=== PATIENT | male | born 1960 | race Caucasian/White ===

== ENCOUNTER → 2017-12-20 08:54 | Outpatient (CLI) | payer OTHER, SELFPAY ==
[2017-12-20 12:59] LABS: AST(SGOT) 17 U/L (15-37); Alanine Aminotransfer ALT/SGPT 29 U/L (16-61); Albumin, Serum 3.6 g/dL (3.2-5.0); Alkaline Phosphatase 52 U/L (45-117); Anion Gap 8 (5-15); BUN 17 mg/dL (7-18); Calcium,Total 8.4 mg/dL (8.5-10.1); Chloride 106 mmol/L (98-107); Cholesterol 154 mg/dL (200); Creatinine, Serum 0.94 mg/dL (0.70-1.30); EST Glomerular Filtration Rate 88 mL/min (>60); Est Glom Filt Rate - Afr Amer 106 mL/min (>60); Globulin 3.6 g/dL (2.2-4.2); Glucose 97 mg/dL (74-106); High Density Lipoprotein 39 mg/dL; Potassium 4.1 mmol/L (3.5-5.1); Protein, Total 7.2 g/dL (6.4-8.2); Sodium Level 139 mmol/L (136-145); Triglycerides 94 mg/dL; Very Low Density Lipoprotein 19 mg/dL (5-40)
[2017-12-20 13:03] LABS: Absolute Lymphocyte Count 1.63 X10^3/ul (0.83-4.51); Absolute Neutrophil Count 3.1 X10^3/uL (2.0-7.7); Basophil# 0.03 X10^3/uL; Basophil% 0.5 % (0-1); Eosinophil# 0.21 X10^3/uL; Eosinophils% 3.8 % (0-5); Hematocrit 43.3 % (40-54); Hemoglobin 14.9 g/dl (13.0-16.5); Lymphocyte # 1.63 X10^3/ul (4.0); Lymphocyte % 29.9 % (19-41); Mean Corp Hgb Conc 34.4 g/gl (32-36); Mean Corpuscular Hgb 28.4 pg (27.0-32.0); Mean Corpuscular Volume 82.5 fL (80-94); Mean Platelet Vol. 8.8 fl (6.2-12.0); Monocyte# 0.43 X10^3/uL; Monocyte% 7.9 % (0-10); Neutrophil % 56.8 % (47-70); Platelet Count 212 K/mm3 (150-450); RBC Distribution Width CV 13.3 % (11.6-14.6); RBC Distribution Width SD 39.7 fl (35.1-43.9); Red Blood Count 5.25 M/mm3 (4.6-6.2); White Blood Count 5.5 K/mm3 (4.4-11.0)
[2017-12-20 13:04] LABS: POSITIVE COUNT NO; POSITIVE DIFFERENTIAL NO; POSITIVE MORPHOLOGY NO
[2017-12-20 13:12] LABS: Vitamin D,25 Hydroxy 76.7 ng/mL (29.95-100.01)
== END ==
PROVIDERS: Family Provider Family Medicine; PCP Family Medicine; Visit Provider Family Medicine
DX: I10 Essential (primary) hypertension (principal); E78.5 Hyperlipidemia, unspecified; E55.9 Vitamin D deficiency, unspecified; Z12.5 Encounter for screening for malignant neoplasm of prostate
CPT/HCPCS: 36415; 80053; 80061; 82306; 85025

== ENCOUNTER → 2018-06-23 09:56 | Outpatient (CLI) | payer OTHER, SELFPAY ==
[2018-06-23 12:34] LABS: Absolute Lymphocyte Count 1.42 X10^3/ul (0.83-4.51); Absolute Neutrophil Count 3.4 X10^3/uL (2.0-7.7); Basophil# 0.02 X10^3/uL; Basophil% 0.4 % (0-1); Eosinophil# 0.14 X10^3/uL; Eosinophils% 2.6 % (0-5); Hematocrit 41.7 % (40-54); Lymphocyte # 1.42 X10^3/ul (4.0); Lymphocyte % 26.7 % (19-41); Mean Corp Hgb Conc 33.6 g/gl (32-36); Mean Corpuscular Hgb 27.9 pg (27.0-32.0); Mean Corpuscular Volume 83.2 fL (80-94); Monocyte# 0.37 X10^3/uL; Neutrophil # 3.36 X10^3/uL (2.7-7.7); Neutrophil % 63.3 % (47-70); Platelet Count 210 K/mm3 (150-450); RBC Distribution Width CV 13.3 % (11.6-14.6); RBC Distribution Width SD 40.2 fl (35.1-43.9); Red Blood Count 5.01 M/mm3 (4.6-6.2); White Blood Count 5.3 K/mm3 (4.4-11.0)
[2018-06-23 12:52] LABS: POSITIVE COUNT NO; POSITIVE DIFFERENTIAL NO; POSITIVE MORPHOLOGY NO
[2018-06-23 12:55] LABS: ALB/GLOB Ratio 1.2 RATIO (0.9-2.4); AST(SGOT) 17 U/L (15-37); Alanine Aminotransfer ALT/SGPT 29 U/L (16-61); Albumin, Serum 3.8 g/dL (3.2-5.0); Alkaline Phosphatase 50 U/L (45-117); Anion Gap 10 (5-15); BUN 14 mg/dL (7-18); BUN/Creat Ratio 14.3 RATIO (10-20); Calcium,Total 8.7 mg/dL (8.5-10.1); Chloride 106 mmol/L (98-107); Creatinine, Serum 0.98 mg/dL (0.70-1.30); EST Glomerular Filtration Rate 84 mL/min (>60); Est Glom Filt Rate - Afr Amer 102 mL/min (>60); Globulin 3.3 g/dL (2.2-4.2); Glucose 84 mg/dL (74-106); Potassium 4.1 mmol/L (3.5-5.1); Protein, Total 7.1 g/dL (6.4-8.2); Sodium Level 143 mmol/L (136-145); Thyroid Stim Hormone (TSH) 2.49 uIU/mL (0.358-3.74)
== END ==
PROVIDERS: Family Provider Family Medicine; PCP Family Medicine; Visit Provider Family Medicine
DX: I10 Essential (primary) hypertension (principal); R53.83 Other fatigue; Z51.81 Encounter for therapeutic drug level monitoring
CPT/HCPCS: 36415; 80053; 84443; 85025

== ENCOUNTER → 2018-12-19 10:00 | Outpatient (CLI) | payer OTHER, SELFPAY ==
[2018-11-01 11:06] VITALS: BMI 36.6
[2018-12-19 12:35] LABS: Absolute Neutrophil Count 4.1 X10^3/uL (2.0-7.7); Basophil# 0.02 X10^3/uL; Basophil% 0.3 % (0-1); Eosinophil# 0.11 X10^3/uL; Eosinophils% 1.8 % (0-5); Hematocrit 44.5 % (40-54); Hemoglobin 14.4 g/dl (13.0-16.5); Lymphocyte % 24.7 % (19-41); Mean Corp Hgb Conc 32.4 g/gl (32-36); Mean Corpuscular Hgb 27.8 pg (27.0-32.0); Mean Corpuscular Volume 85.9 fL (80-94); Mean Platelet Vol. 8.9 fl (6.2-12.0); Monocyte# 0.37 X10^3/uL; Monocyte% 6.1 % (0-10); Neutrophil # 4.05 X10^3/uL (2.7-7.7); Neutrophil % 66.6 % (47-70); Platelet Count 199 K/mm3 (150-450); RBC Distribution Width CV 13.3 % (11.6-14.6); RBC Distribution Width SD 41.8 fl (35.1-43.9); Red Blood Count 5.18 M/mm3 (4.6-6.2); White Blood Count 6.1 K/mm3 (4.4-11.0)
[2018-12-19 12:42] LABS: POSITIVE COUNT NO; POSITIVE DIFFERENTIAL NO; POSITIVE MORPHOLOGY NO
[2018-12-19 12:53] LABS: Vitamin D,25 Hydroxy 88.5 ng/mL (29.95-100.01)
[2018-12-19 13:15] LABS: ALB/GLOB Ratio 1.2 RATIO (0.9-2.4); AST(SGOT) 18 U/L (15-37); Alanine Aminotransfer ALT/SGPT 29 U/L (16-61); Albumin, Serum 3.9 g/dL (3.2-5.0); Alkaline Phosphatase 49 U/L (45-117); Anion Gap 10 (5-15); BUN 14 mg/dL (7-18); BUN/Creat Ratio 13.2 RATIO (10-20); Calcium,Total 8.7 mg/dL (8.5-10.1); Chloride 107 mmol/L (98-107); Cholesterol 148 mg/dL (200); Creatinine, Serum 1.06 mg/dL (0.70-1.30); EST Glomerular Filtration Rate 76 mL/min (>60); Est Glom Filt Rate - Afr Amer 92 mL/min (>60); Globulin 3.3 g/dL (2.2-4.2); Glucose 90 mg/dL (74-106); High Density Lipoprotein 42 mg/dL; PSA,Total - Annual Screen 0.37 ng/mL (0.00-4.00); Potassium 4.2 mmol/L (3.5-5.1); Protein, Total 7.2 g/dL (6.4-8.2); Sodium Level 141 mmol/L (136-145); Thyroid Stim Hormone (TSH) 2.54 uIU/mL (0.358-3.74); Triglycerides 80 mg/dL; Very Low Density Lipoprotein 16 mg/dL (5-40)
== END ==
PROVIDERS: Family Provider Family Medicine; PCP Family Medicine; Visit Provider Family Medicine
DX: E55.9 Vitamin D deficiency, unspecified (principal); E78.5 Hyperlipidemia, unspecified; I10 Essential (primary) hypertension; R53.83 Other fatigue; Z12.5 Encounter for screening for malignant neoplasm of prostate; Z51.81 Encounter for therapeutic drug level monitoring
CPT/HCPCS: 36415; 80053; 80061; 82306; 84153; 84443; 85025; G0103

== ENCOUNTER → 2019-05-12 | Outpatient (CLI) | payer OTHER, SELFPAY ==
[2019-05-12 08:31] VITALS: BMI 36.6
--- NOTE | 2019-05-12 08:47 | RAD_ITS ---
STUDY: X-RAY - LEFT KNEE REASON FOR EXAM: Chronic pain. TECHNIQUE: 4 view(s) of the knee. COMPARISON: Radiographs 09/21/2016. FINDINGS: Normal visualized distal femur. Normal visualized proximal tibia and fibula. Normal proximal tibiofibular articulation. Normal medial femorotibial compartment. Normal lateral femorotibial compartment. Normal patellofemoral articulation. There is an enthesophyte at the superior pole of the patella. RAD/Knee 4 or More Views IMPRESSION: Patellar enthesophyte. Otherwise, unremarkable x-ray examination of the left knee. Electronically Signed: Oscar Sparks MD at 13:28 EDT Tel , Service support ,
== END | disposition home or self-care (01) ==
LOC: HPRAD 08:46
PROVIDERS: Family Provider Family Medicine; PCP Family Medicine; Referring Provider Orthopaedic Surgery; Visit Provider Orthopaedic Surgery
DX: M25.562 Pain in left knee (principal)
CPT/HCPCS: 73564

== ENCOUNTER → 2019-06-08 | Outpatient (CLI) | payer OTHER, SELFPAY ==
--- NOTE | 2019-06-08 09:10 | LIP_PTH ---
PATIENT: GARRET CHIRINOS LOC: [facility] U#:[id number] AGE/SX: 58/M ROOM: RE06/08/[address]: Dr. Annmarie Espitia MD : 1960 BED: DIS: 06/08/2019 SPEC #: [id number] RECD: 06/08/19 16:07 STATUS: NISA REMariam #: [id number] YVETTE: 06/08/19 09:[address]: Annmarie Espitia DEPT: SURGICAL PATHOLOGY RECD BY: Sharath Leung ENTERED: 06/09/19 14:16 SP TYPE: LIPOMA OT DR: DO Masha Bain Tissues: Soft tissues, NOS Procedures: Surgery Specimen Level III HEADER OPERATION: Excision of truncal lipomas PRE-OP DIAGNOSIS: Lipomas, left lower chest TISSUE SUBMITTED: Truncal lipoma, left lower chest MICROSCOPIC DIAGNOSIS Soft tissue mass of left lower chest wall, biopsy: Mature adipose tissue consistent with angiolipoma. AM:rafat 06/10/19 MICROSCOPIC DESCRIPTION Slides are reviewed. GROSS DESCRIPTION Received in fixative is one container labeled with the patient's name and designated abdominal lipoma. The specimen consists of 4 variable-sized pieces of yellow adipose tissue that measure in aggregate 2.5 x 2.5 x 1.5 cm. Sections reveal yellow adipose cut surfaces without area of hemorrhage, necrosis and cystic degeneration. Electronics Specialist sections are submitted in 1 cassette. /SJ:rafat 06/09/19 TC: 1 CPT: 83442
[2019-06-08 10:08] VITALS: BMI 36.6
== END | disposition home or self-care (01) ==
PROVIDERS: Family Provider Family Medicine; PCP Family Medicine; Referring Provider Surgery; Visit Provider Surgery
DX: D17.1 Benign lipomatous neoplasm of skin and subcutaneous tissue of trunk (principal)
CPT/HCPCS: 88304

== ENCOUNTER → 2019-12-14 | Outpatient (CLI) | payer OTHER, SELFPAY ==
[2019-06-08 10:08] VITALS: BMI 36.6
[2019-12-14 12:56] LABS: Absolute Lymphocyte Count 1.45 X10^3/uL (0.83-4.51); Absolute Neutrophil Count 3.2 X10^3/uL (2.0-7.7); Basophil# 0.02 X10^3/uL; Basophil% 0.4 % (0-1); Eosinophil# 0.13 X10^3/uL; Eosinophils% 2.5 % (0-5); Hematocrit 43.1 % (40-54); Hemoglobin 14.2 g/dL (13.0-16.5); Lymphocyte # 1.45 X10^3/ul (4.0); Lymphocyte % 27.9 % (19-41); Mean Corp Hgb Conc 32.9 g/dL (32-36); Mean Corpuscular Hgb 27.6 pg (27.0-32.0); Mean Corpuscular Volume 83.9 fL (80-94); Mean Platelet Vol. 8.9 fl (6.2-12.0); Monocyte# 0.35 X10^3/uL; Monocyte% 6.7 % (0-10); NRBC Flagged by Analyzer 0 % (0-5); Neutrophil # 3.23 X10^3/uL (2.7-7.7); Neutrophil % 62.1 % (47-70); Platelet Count 170 K/mm3 (150-450); RBC Distribution Width SD 39.5 fl (35.1-43.9); Red Blood Count 5.14 M/mm3 (4.6-6.2); White Blood Count 5.2 K/mm3 (4.4-11.0)
[2019-12-14 13:14] LABS: AST(SGOT) 16 U/L (15-37); Alanine Aminotransfer ALT/SGPT 32 U/L (16-61); Albumin, Serum 3.4 g/dL (3.2-5.0); Alkaline Phosphatase 46 U/L (45-117); Anion Gap 5 (5-15); BUN 15 mg/dL (7-18); BUN/Creat Ratio 14.6 RATIO (10-20); Calcium,Total 8.8 mg/dL (8.5-10.1); Chloride 109 mmol/L (98-107); Cholesterol 141 mg/dL (200); Creatinine, Serum 1.03 mg/dL (0.70-1.30); EST Glomerular Filtration Rate 79 mL/min (>60); Est Glom Filt Rate - Afr Amer 95 mL/min (>60); Globulin 3.4 g/dL (2.2-4.2); Glucose 103 mg/dL (74-106); High Density Lipoprotein 39 mg/dL; Protein, Total 6.8 g/dL (6.4-8.2); Sodium Level 141 mmol/L (136-145); Thyroid Stim Hormone (TSH) 3.36 uIU/mL (0.358-3.74); Triglycerides 89 mg/dL; Very Low Density Lipoprotein 18 mg/dL (5-40)
[2019-12-14 13:18] LABS: Vitamin D,25 Hydroxy 92.1 ng/mL
== END | disposition home or self-care (01) ==
LOC: BFHLAB 08:53
PROVIDERS: PCP Family Medicine; Referring Provider Family Medicine; Visit Provider Family Medicine
DX: E78.5 Hyperlipidemia, unspecified (principal); E55.9 Vitamin D deficiency, unspecified; R53.83 Other fatigue; Z12.5 Encounter for screening for malignant neoplasm of prostate; Z51.81 Encounter for therapeutic drug level monitoring
CPT/HCPCS: 36415; 80053; 80061; 82306; 84443; 85025

== ENCOUNTER → 2019-12-21 | Outpatient (CLI) | payer OTHER, SELFPAY ==
[2019-06-08 10:08] VITALS: BMI 36.6
== END | disposition home or self-care (01) ==
LOC: LAB.FUTURE 13:54 → BFHLAB 13:55
PROVIDERS: PCP Family Medicine; Visit Provider Family Medicine
DX: Z12.5 Encounter for screening for malignant neoplasm of prostate (principal)
CPT/HCPCS: 36415; 84153; G0103

== ENCOUNTER → 2020-06-16 | Outpatient (CLI) | payer OTHER, SELFPAY ==
[2019-06-08 10:08] VITALS: BMI 36.6
[2020-06-16 08:34] VITALS: BMI 36.6
[2020-06-16 13:02] LABS: Free T3 2.5 pg/mL (2.18-3.98); T4 Free Direct 1.03 ng/dL (0.76-1.46); Thyroid Stim Hormone (TSH) 2.79 uIU/mL (0.358-3.74)
[2020-06-17 14:12] LABS: Thyroid Peroxidase AB < 9 IU/mL (0-34)
== END | disposition home or self-care (01) ==
LOC: BFHLAB 09:27
PROVIDERS: PCP Family Medicine; Referring Provider Family Medicine; Visit Provider Family Medicine
DX: E03.9 Hypothyroidism, unspecified (principal)
CPT/HCPCS: 36415; 84439; 84443; 84481; 86376

== ENCOUNTER → 2020-07-06 16:05 | Outpatient (CLI) | payer OTHER, SELFPAY ==
[2020-06-16 08:34] VITALS: BMI 36.6
--- NOTE | 2020-07-06 16:30 | CYST_PTH ---
PATIENT: GARRET CHIRINOS LOC: [facility] U#:[id number] AGE/SX: 65/M ROOM: RE07/06/[address]: Dr. Masha Ortiz DO : 1960 BED: DIS: SPEC #: [id number] RECD: 07/07/20 12:44 STATUS: NISA KARLA #: [id number] YVETTE: 07/06/20 16:[address]: Masha Ortiz DEPT: SURGICAL PATHOLOGY RECD BY: Srinivas Lamb ENTERED: 07/07/20 13:25 SP TYPE: Cyst OTHR DR: Masha Ortiz Tissues: CYST Procedures: Surgery Specimen Level IV HEADER OPERATION: Excision sebaceous cyst left upper lip PRE-OP DIAGNOSIS: Rule out sebaceous cyst TISSUE SUBMITTED: Left upper lip MICROSCOPIC DIAGNOSIS Left upper lip, excisional biopsy: Benign adnexal tumor, most consistent with trichoepithelioma, completely excised. SJ:gabriel 07/08/20 COMMENT Case has been reviewed in consultation with Dr. Jorgensen who concurs with the above diagnosis. IDC:AM MICROSCOPIC DESCRIPTION Slides are reviewed. GROSS DESCRIPTION Received in fixative is one container labeled with the patient's name and designated left upper lip. The specimen consists of a piece of stafford mucosal tissue measuring 1 x 0.6 x 0.3 cm. The specimen is inked, serially sectioned and submitted entirely in one cassette. / SJ:gabriel 07/07/20 TC:1 CPT: 13372
== END ==
PROVIDERS: PCP Family Medicine; Visit Provider Family Medicine
DX: D23.0 Other benign neoplasm of skin of lip (principal)
CPT/HCPCS: 88304; 88305

== ENCOUNTER → 2020-11-29 08:37 | Outpatient (CLI) | payer OTHER, SELFPAY ==
--- NOTE | 2020-11-28 | IMM_PTH ---
PATIENT: GARRET CHIRINOS LOC: [facility] U#:[id number] AGE/SX: 65/M ROOM: RE11/29/[address]: Dr. Masha Ortiz DO : 1960 BED: DIS: SPEC #: [id number] RECD: 11/30/20 13:42 STATUS: SOUDom REQ #: [id number] YVETTE: 11/28/20 00:[address]: Masha Ortiz DEPT: IMMUNOHISTOCHEMISTRY RECD BY: Mikaela Bauer ENTERED: 11/30/20 13:48 SP TYPE: IMMUNO OTHR DR: Masha Ortiz Tissues: B - Skin of back, NOS Procedures: SMA (add) Beto Ret (add) CD34 (add) CK5-6 (add) DESMIN (add) MACRO (add) Vimentin (add) NEUROFIL (add) Pankeratin (initial) MELAN-A (add) P40 (add) S-100 (add) [facility]YS[facility] [address] [address] SPECIMEN INFORMATION: Tissue Source: B - Left mid back Clinical Info: Rule out MM left mid back Specimen Number: [id number] CPT code: 57045, 05484 x11 METHODOLOGY: Deparaffinized sections of prefer/formalin-fixed tissue or PAP/DQ stained slides are incubated with monoclonal/polyclonal antibodies/oligonucleotide probes. Localization is made via biotin free immunoperoxidase method. Appropriate controls are performed and reacted as expected. Results on target cell population are indicated in the following table: RESULTS: ANTIBODY / CLONE RESULT Block B AE1-3 (AE1/AE3/PCK26) negative Vimentin (V9) positive CD34 (QBEnd-10) negative Macro (HAM-56) negative Actin (1A4) negative Desmin (CE-R-11) negative Melan A (A103) negative S-100 (4C4.9) negative Neurofil (2F11) negative CALRET (polyclonal) positive, stromal CK5-6 (D5 & 1684) negative P40 (BC28) negative These tests were developed and their performance characteristics determined by [facility]. They may not have been cleared or approved by the U.S. Food and Drug Administration. The FDA has determined that such clearance or approval is not necessary. The above immunohistochemical/dualISH markers are ordered and reviewed by the Pathologist. INTERPRETATION: B. Skin lesion of left mid back, biopsy: Consistent with dermatofibroma. AM:gabriel 12/01/2020
--- NOTE | 2020-11-28 14:30 | LES_PTH ---
PATIENT: GARRET CHIRINOS LOC: [facility] U#:[id number] AGE/SX: 65/M ROOM: RE11/29/[address]: Dr. Masha Ortiz DO : 1960 BED: DIS: SPEC #: [id number] RECD: 11/29/20 12:06 STATUS: NISA KARLA #: [id number] YVETTE: 11/28/20 14:[address]: Masha Ortiz DEPT: SURGICAL PATHOLOGY RECD BY: Alberta Leahy ENTERED: 11/29/20 12:52 SP TYPE: Lesion OTHR : Masha Ortiz Tissues: A - Skin of face, NOS B - Skin of back, NOS Procedures: Surgery Specimen Level IV HEADER OPERATION: Excision lesion PRE-OP DIAGNOSIS: Rule out BCC right jaw; rule out MM left mid back TISSUE SUBMITTED: A - Right jaw, B - Left mid back MICROSCOPIC DIAGNOSIS A. Skin lesion of right jaw, biopsy: Intradermal nevus. See comment. B. Skin lesion of left mid back, biopsy: Dermatofibroma. See comment. AM:gabriel 11/30/2020 COMMENT A. The lesion appears to have been completely excised in the planes examined. B. Immunohistochemistry ([id number]) supports the above diagnosis. Case has been reviewed in consultation with Dr. Sebastian who concurs with the above diagnosis. IDC:SJ MICROSCOPIC DESCRIPTION Slides are reviewed. GROSS DESCRIPTION A - Received in fixative is one container labeled with the patient's name and designated jaw. The specimen consists of a discoid fragment of light stafford soft tissue measuring 0.6 x 0.3 x 0.2 cm. The specimen is inked, bisected and totally submitted in one cassette. B - Received in fixative is one container labeled with the patient's name and designated mid back. The specimen consists of an ellipse of light stafford excised skin measuring 1.5 x 1 x 0.6 cm. The specimen is inked, serially sectioned and totally submitted in one cassette. / AM:gabriel 11/29/20 TC:3 CPT: 02090 x2
== END ==
PROVIDERS: PCP Family Medicine; Visit Provider Family Medicine
DX: D23.5 Other benign neoplasm of skin of trunk (principal); D22.39 Melanocytic nevi of other parts of face
CPT/HCPCS: 88305; 88341; 88342

== ENCOUNTER → 2020-12-28 08:41 | Outpatient (CLI) | payer OTHER, SELFPAY ==
[2020-12-28 10:21] LABS: Absolute Lymphocyte Count 1.72 X10^3/uL (0.83-4.51); Basophil# 0.03 X10^3/uL; Basophil% 0.5 % (0-1); Eosinophil# 0.06 X10^3/uL; Eosinophils% 0.9 % (0-5); Hematocrit 47.1 % (40-54); Hemoglobin 14.9 g/dL (13.0-16.5); Lymphocyte # 1.72 X10^3/ul (4.0); Mean Corp Hgb Conc 31.6 g/dL (32-36); Mean Corpuscular Hgb 27.3 pg (27.0-32.0); Mean Corpuscular Volume 86.3 fL (80-94); Mean Platelet Vol. 8.6 fl (6.2-12.0); Monocyte# 0.55 X10^3/uL; Monocyte% 8.6 % (0-10); NRBC Flagged by Analyzer 0 % (0-5); Neutrophil # 3.99 X10^3/uL (2.7-7.7); Neutrophil % 62.5 % (47-70); Platelet Count 241 K/mm3 (150-450); RBC Distribution Width SD 40.4 fl (35.1-43.9); Red Blood Count 5.46 M/mm3 (4.6-6.2); White Blood Count 6.4 K/mm3 (4.4-11.0)
[2020-12-28 10:55] LABS: Vitamin D,25 Hydroxy 84.6 ng/mL
[2020-12-28 11:34] LABS: ALB/GLOB Ratio 1.1 RATIO (0.9-2.4); AST(SGOT) 12 U/L (15-37); Alanine Aminotransfer ALT/SGPT 25 U/L (16-61); Albumin, Serum 3.8 g/dL (3.2-5.0); Alkaline Phosphatase 58 U/L (45-117); Anion Gap 4 (5-15); BUN 16 mg/dL (7-18); BUN/Creat Ratio 13.7 RATIO (10-20); Calcium,Total 9.5 mg/dL (8.5-10.1); Chloride 105 mmol/L (98-107); Cholesterol 148 mg/dL (200); Creatinine, Serum 1.17 mg/dL (0.70-1.30); EST Glomerular Filtration Rate 68 mL/min (>60); Est Glom Filt Rate - Afr Amer 82 mL/min (>60); Globulin 3.6 g/dL (2.2-4.2); Glucose 91 mg/dL (74-106); High Density Lipoprotein 49 mg/dL; PSA,Total - Annual Screen 0.26 ng/mL (0.00-4.00); Potassium 4.3 mmol/L (3.5-5.1); Protein, Total 7.4 g/dL (6.4-8.2); Sodium Level 139 mmol/L (136-145); Thyroid Stim Hormone (TSH) 3.18 uIU/mL (0.358-3.74); Triglycerides 74 mg/dL; Very Low Density Lipoprotein 15 mg/dL (5-40)
== END ==
PROVIDERS: PCP Family Medicine; Referring Provider Family Medicine; Visit Provider Family Medicine
DX: E78.5 Hyperlipidemia, unspecified (principal); E55.9 Vitamin D deficiency, unspecified; R53.83 Other fatigue; Z12.5 Encounter for screening for malignant neoplasm of prostate; Z51.81 Encounter for therapeutic drug level monitoring
CPT/HCPCS: 36415; 80053; 80061; 82306; 84153; 84443; 85025; G0103

== ENCOUNTER → 2021-01-02 12:51 | Outpatient (CLI) | payer OTHER, SELFPAY ==
[2021-01-07 16:08] LABS: Testosterone, Free 5.74 ng/dL (5.00-21.00)
[2021-01-07 17:13] LABS: Testosterone, % Free 2.83 % (1.50-4.20); Testosterone, Total 203 ng/dL (264-916)
== END ==
PROVIDERS: PCP Family Medicine; Referring Provider Family Medicine; Visit Provider Family Medicine
DX: E29.1 Testicular hypofunction (principal)
CPT/HCPCS: 36415; 84402; 84403

== ENCOUNTER → 2021-01-10 | Outpatient (CLI) | payer OTHER, SELFPAY ==
--- NOTE | 2021-01-10 08:45 | LIP_PTH ---
PATIENT: GARRET CHIRINOS [facility] U[facility][id number] AGE/SX: 60/M ROOM: RE01/10/[address]: Dr. Annmarie Espitia MD : 1960 BED: DIS: 01/10/2021 SPEC #: [id number] RECD: 01/10/21 09:19 STATUS: NISA REMariam #: [id number] YVETTE: 01/10/21 08:[address]: Annmarie Espitia DEPT: SURGICAL PATHOLOGY RECD BY: Alberta Leahy ENTERED: 01/10/21 09:41 SP TYPE: LIPOMA OTHR DR: Masha Ortiz Tissues: Soft tissues, NOS Procedures: Surgery Specimen Level III HEADER OPERATION: Excision of abdominal subcutaneous mass (multiple) CHRISTEL PRE-OP DIAGNOSIS: Mass of subcutaneous tissue TISSUE SUBMITTED: JAYSON lipomas MICROSCOPIC DIAGNOSIS Right upper quadrant subcutaneous tissue, excision: Mature adipose tissue consistent with angiolipoma. AM:gabriel 01/11/2021 MICROSCOPIC DESCRIPTION Slides are reviewed. GROSS DESCRIPTION Received in fixative is one container labeled with the patient's name and designated right upper quadrant lipoma. The specimen consists of multiple irregular fragments of yellow adipose tissue that in aggregate measure 4.5 x 3.5 x 1 cm. Sections reveal yellow adipose cut surfaces without area of hemorrhage, necrosis or cystic degeneration. The entire specimen is submitted in three cassettes. / SJ:gabriel 01/10/21 TC:1 CPT: 74450
== END | disposition home or self-care (01) ==
LOC: LABSPEC 09:25
PROVIDERS: PCP Family Medicine; Referring Provider Surgery; Visit Provider Surgery
DX: R22.9 Localized swelling, mass and lump, unspecified (principal)
CPT/HCPCS: 88304

== ENCOUNTER → 2021-02-03 13:32 | Outpatient (CLI) | payer OTHER, SELFPAY ==
[2021-02-10 09:36] LABS: Testosterone, Free 6.91 ng/dL (5.00-21.00)
[2021-02-10 12:33] LABS: Testosterone, % Free 2.39 % (1.50-4.20); Testosterone, Total 289 ng/dL (264-916)
== END ==
PROVIDERS: PCP Family Medicine; Referring Provider Family Medicine; Visit Provider Family Medicine
DX: E29.1 Testicular hypofunction (principal)
CPT/HCPCS: 36415; 84402; 84403

== ENCOUNTER 2021-12-14 09:06 | Outpatient (CLI) | payer OTHER, SELFPAY ==
--- NOTE | 2021-12-14 09:13 | CT_ITS ---
STUDY: CT ABDOMEN AND PELVIS WITH CONTRAST REASON FOR EXAM: Male, 61 years old. DIVERTICULITIS RADIATION DOSAGE (If Supplied By Facility): CTDIvol = ( 17.90 ) mGy, DLP = ( 1428.47 ) mGycm TECHNIQUE: Transaxial images were obtained from the dome of the diaphragm to the symphysis pubis with oral contrast. Oral and amp; IV Gastrografin and amp; 100mL Isovue-300 was administered. Sagittal and coronal images were reconstructed. Individualized dose optimization techniques were used for this CT. COMPARISON: Comparison is made with prior examination dated 06/14/2017. FINDINGS: The visualized lung bases are unremarkable. Coronary artery calcification. There is decreased attenuation of the liver consistent with steatosis. There are surgical clips in the gallbladder fossa consistent with a prior cholecystectomy. Normal spleen. Normal pancreas. Normal bilateral adrenal glands. There is a 3.5 cm x 2.8 cm cyst in the upper lateral aspect of the left kidney. There is a 1.2 cm cyst in the upper medial aspect of the left kidney. Stable 1.6 cm cyst in the anterior midportion of the kidney as well as the posterior lower pole of the Normal visualized stomach. Normal small intestine. There is diverticulosis, with thickening of the colon wall, and pericolonic inflammation changes consistent with acute diverticulitis. The appendix is visualized and appears normal. There is diffuse atherosclerotic calcification of the abdominal aorta, without a demonstrated aneurysm. Normal inferior vena cava. Normal retroperitoneum. Normal urinary bladder. There is a left-sided inguinal hernia containing adipose tissue. There are mild degenerative changes of the visualized lumbar spine. CT/Abdomen/Pelvis WITH Contrast IMPRESSION: Fatty infiltration of the liver. Findings in keeping with a mild degree of a noncomplicated acute sigmoid diverticulitis. Stable bilateral renal cysts. Small left inguinal hernia containing fat. Status post cholecystectomy. Electronically Signed: Jamie Nix MD at 12:35 EST ,
[2021-12-14 11:56] LABS: CREATININE FINGERSTICK 1.2 mg/dL (0.70-1.30); EGFR FINGERSTICK > 60.0000 mL/min (>60)
== END 2021-12-14 23:59 | disposition home or self-care (01) ==
LOC: CT 09:07
PROVIDERS: PCP Family Medicine; Referring Provider Family Medicine; Visit Provider Family Medicine
DX: K57.92 Diverticulitis of intestine, part unspecified, without perforation or abscess without bleeding (principal)
CPT/HCPCS: 74177; Q9967

== ENCOUNTER → 2022-06-04 | Outpatient (CLI) | payer OTHER, SELFPAY ==
[2022-06-04 10:05] LABS: Absolute Lymphocyte Count 1.41 X10^3/uL (0.83-4.51); Absolute Neutrophil Count 4.9 X10^3/uL (2.0-7.7); Basophil# 0.03 X10^3/uL; Basophil% 0.4 % (0-1); Eosinophil# 0.11 X10^3/uL; Eosinophils% 1.6 % (0-5); Hematocrit 45.8 % (40-54); Hemoglobin 14.7 g/dL (13.0-16.5); Lymphocyte # 1.41 X10^3/ul (0.83-4.51); Mean Corp Hgb Conc 32.1 g/dL (32-36); Mean Corpuscular Hgb 27.3 pg (27.0-32.0); Mean Platelet Vol. 8.6 fl (6.2-12.0); Monocyte# 0.51 X10^3/uL; Monocyte% 7.2 % (0-10); NRBC Flagged by Analyzer 0 % (0-5); Neutrophil # 4.93 X10^3/uL (2.7-7.7); Neutrophil % 70.1 % (47-70); Platelet Count 228 K/mm3 (150-450); RBC Distribution Width CV 13.4 % (11.6-14.6); RBC Distribution Width SD 41.6 fl (35.1-43.9); Red Blood Count 5.39 M/mm3 (4.6-6.2)
[2022-06-04 10:17] LABS: ALB/GLOB Ratio 1.1 RATIO (0.9-2.4); AST(SGOT) 18 U/L (15-37); Alanine Aminotransfer ALT/SGPT 22 U/L (16-61); Albumin, Serum 3.6 g/dL (3.2-5.0); Alkaline Phosphatase 47 U/L (45-117); Anion Gap 4 (5-15); BUN 14 mg/dL (7-18); BUN/Creat Ratio 10.9 RATIO (10-20); Calcium,Total 8.5 mg/dL (8.5-10.1); Chloride 106 mmol/L (98-107); Creatinine, Serum 1.29 mg/dL (0.70-1.30); EST Glomerular Filtration Rate 60 mL/min (>60); Est Glom Filt Rate - Afr Amer 73 mL/min (>60); Globulin 3.4 g/dL (2.2-4.2); Glucose 80 mg/dL (74-106); Potassium 4.3 mmol/L (3.5-5.1); Sodium Level 139 mmol/L (136-145)
[2022-06-11 12:08] LABS: Testosterone, Free 31.32 ng/dL (5.00-21.00)
[2022-06-12 17:58] LABS: Testosterone, Total 1044 ng/dL (264-916)
== END | disposition home or self-care (01) ==
LOC: MTLAB 08:33
PROVIDERS: PCP Family Medicine; Referring Provider Family Medicine; Visit Provider Family Medicine
DX: E29.1 Testicular hypofunction (principal); Z51.81 Encounter for therapeutic drug level monitoring
CPT/HCPCS: 36415; 80053; 84402; 84403; 85025

== ENCOUNTER 2022-07-09 05:25 | Inpatient (IN) | payer OTHER, SELFPAY ==
--- NOTE | 2022-06-29 11:57 | EKG12_ITS ---
Test Reason : PRE OP Blood Pressure : / mmHG Vent. Rate : 059 BPM Atrial Rate : 059 BPM P-R Int : 154 ms QRS Dur : 094 ms QT Int : 422 ms P-R-T Axes : 052 -13 023 degrees QTc Int : 417 ms Sinus bradycardia Septal infarct , age undetermined Abnormal ECG Confirmed by DESIRAE CONWAY, DEVORAH ([id number]), website/blog editor ANKIT BOWIE ([id number]) on 06/30/2022 9:35:51 AM Referred By: KITTY Confirmed By:DEVORAH MERRILL MD
[2022-06-29 13:27] LABS: Hematocrit 48.5 % (40-54); Hemoglobin 15.8 g/dL (13.0-16.5); Mean Corp Hgb Conc 32.6 g/dL (32-36); Mean Corpuscular Volume 82.8 fL (80-94); Mean Platelet Vol. 8.7 fl (6.2-12.0); Platelet Count 205 K/mm3 (150-450); RBC Distribution Width CV 13.5 % (11.6-14.6); RBC Distribution Width SD 40.6 fl (35.1-43.9); Red Blood Count 5.86 M/mm3 (4.6-6.2); White Blood Count 5.7 K/mm3 (4.4-11.0)
[2022-06-29 13:58] LABS: Anion Gap 8 (5-15); BUN 18 mg/dL (7-18); BUN/Creat Ratio 15.9 RATIO (10-20); Calcium,Total 9.3 mg/dL (8.5-10.1); Chloride 105 mmol/L (98-107); Creatinine, Serum 1.13 mg/dL (0.70-1.30); EST Glomerular Filtration Rate 70 mL/min (>60); Est Glom Filt Rate - Afr Amer 85 mL/min (>60); Glucose 101 mg/dL (74-106); Potassium 4.3 mmol/L (3.5-5.1); Sodium Level 137 mmol/L (136-145)
--- NOTE | 2022-07-02 13:14 | CASEMGMT ---
AMADOR DELEON Assessment: TC to pt for initial transition planning/care coordination assessment. RN ADRIENNE introduced self and role at [facility], pt voices understanding and consents to assessment. Care providers, pharmacy, and demographics verified/updated. Admitting Dx: lap sig colectomy with splenic flexure PCP:Angel Specialists:AWAIS Oviedo; SANDRO Chance Preferred Pharmacy: [facility] Insurance: [facility] Prescription Benefit: yes LW/HPOA: Pt states he has a LW/DPOA and he will bring in to be scanned into his chart on day of surgery. He states his Cit[employer] Su is his DPOA. LNOK: Citlaly Su, Living Arrangements: Pt lives with in a two story house with one step to enter. Pt reports he is I in ADL's and denies concerns at home. Transportation: Pt drives self and denies concerns with transportation. DME/HHC/SNF: Pt does not use AD but has access to canes and walkers from family members. Pt denies previous HHC or SNF stays. Pt states no concerns with going home at time of dc. Pt states no further concerns/needs. CM to follow. Advised pt to ask CM if any further question/concerns/needs arise, voices understanding. Pt Goal: Home Plan: Home
[2022-07-09] VITALS (11 sets, daily range): BP systolic 109–127; BP diastolic 66–89; PULSE 65–80; RESP 16–18; TEMP 36.6–37.2; O2SAT 95–100; BMI 32.6
--- NOTE | 2022-07-09 05:56 | HP.PCM_ITS ---
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 Acid reflux Environmental allergies Former smoker Hematoma History of echocardiogram History of lipoma History of steroid therapy History of stress test Hyperlipidemia Hypertension IBS (irritable bowel syndrome) Knee pain Mass of subcutaneous tissue Wears glasses Surgical History? History of cholecystectomy History of colonoscopy History of tonsillectomy Family History? Mother Breast cancer Cancer ?? ? bladder cancer HypertensionFather Diabetes Heart disease High cholesterol Cancer ?? ? skin cancer Social History? Smoking Status:? Former smoker alcohol intake:? never HPI HPI Surgical H&P: Yes HPI: GARRET CHIRINOS, is a 61 M who presents to the office today for an update history and physical for an elective colectomy for recurrent diverticulitis. Patient denies any recent hospitalizations or illnesses since his last visit. Patient denies any recent medications changes. Patient denies any abdominal pain currently. Patient denies previous myocardial infarction, stroke. He denies any pulmonary history. Patient has returned due to an encounter with a horse bite 4 weeks ago. Patient was bitten by his horse on the inner right thigh. Patient was placed on amoxicillin for 7 days by his PCP. Patient denies pain and drainage from the area in his leg. He notes he has returned to bike riding.? ? ? Patient's previous history per Dr. Oviedo: GARRET CHIRINOS, is a 61 M who presents to the office today for Ongoing surgical consultation regarding diverticulitis.? Patient is being referred by Dr. Masha Ortiz and a written copy of my surgical consult and recommendations will return to her.? The patient states that he had a bout of diverticulitis August 2021 and November 2021 and December 2021.? He states that each time he is placed on oral antibiotics.? He states that where as in the past antibiotics would rapidly resolve his problem now his pain does not resolve until he gets deep into the prescription.? He states that at no time has he been advised to cut back to a clear liquid diet. States that 4 years ago after multiple bouts of diverticulitis a surgeon recommend to him that he have a sigmoid colectomy.? 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 He pursued the GI advice changed his diet and for period of time appear to be making good progress.? However currently he is still on that restricted diet and now has had multiple bouts of diverticulitis.? He also has concerns because after this most recent bout he particularly noted a pressure sensation in his urinary bladder area.? He has not had any pneumaturia. He states that previous CT imaging demonstrates bilateral inguinal hernias more notable on the left than the right.? His most recent CT scan performed at the [facility] on December 14, 2021 make specific comment about a left inguinal hernia containing fat but no inguinal hernia on the right.? There was some concern that previous bouts of lower abdominal pain could possibly be his hernia rather than the diverticular disease.? It was suggested to him that he consider having at least the left inguinal hernia repair.? He states it was more over suggested that he can have the hernia repaired at the same time as the colectomy. I have records from July 07, 2018 performed at the [facility] [place] and upper endoscopy because of right upper quadrant abdominal pain.? That demonstrated duodenal erosions and inflammation.? Also some antral irritation as well.? Multiple gastric polyps were identified.? Findings were felt to be consistent with bile gastritis.? Also provided is a CT scan report from [facility] [place] June 14, 2017 showing diverticulosis of the left colon and a fatty liver with a small hemangioma and bilateral renal cysts and bilateral inguinal hernias.? His most recent imaging that I have is December 14, [address] scan of the abdomen and pelvis performed at the [facility].? Again this demonstrated bilateral renal cysts.? There was diverticulosis with thickening of the colonic wall and pericolonic inflammation of the sigmoid colon felt to be consistent with mild noncomplicated acute sigmoid diverticulitis.? Findings suggested a small left inguinal hernia containing fat.? Evidence of a previous cholecystectomy. On March 27, [address] Antwon Chance the patient had a colonoscopy performed.? A 5 mm polyp was seen in the distal transverse colon.? Cold forceps removal performed.? Pathology showed post inflammatory type polyp no evidence of malignancy.? There were multiple medium mouth diverticula found in the sigmoid colon.? At 30 cm there was a diverticulum with the 4 mucosal erythema suggestive of possible diverticulitis.? Repeat colonoscopy at 5 years recommended.? The patient was told that it was now time for him to pursue a colectomy secondary to his multiple bouts of diverticulitis and what was felt to be current findings of ongoing diverticulitis at this time. ROS General General: No weight change, appetite, fatigue, colon cancer, breast cancer or weakness HEENT HEENT: No difficulty swallowing, eye injury, eye surgery, swollen glands or hoarseness Endo Endocrine: No thyroid disease, diabetes mellitus, thyroid cancer, Hair loss, heat intolerance or cold intolerance Skin Skin: No rash or changing moles Breast Breast: No left breast lump, right breast lump, nipple discharge, breast pain, abnormal mammogram, abnormal US or breast enlargement Musc Musculoskeletal: No back problems, arthritis, rheumatoid arthritis, gout or joint pain Cardio Cardiovascular: No murmur, pacemaker, heart disease, atrial fibrillation, high blood pressure, heart attack, heart stent, palpitations, shortness of breat with exertion or chest pain Psych Psychiatric: No depression, anxiety or hearing voices Resp Respiratory: No shortness of breath, No sleep apnea, No cough, No COPD, No asthma, No emphysema and No wheezing Gastro Gastrointestinal: No abdominal pain, No nausea or vomiting, No diarrhea, No constipation, No blood in stool, Yes acid reflux, No hemorrhoids, No ulcers, No gallbladder problem and No black,tarry stools Cj Hematologic: No blood thinners, No blood disorders, No bleeding, No anemia and No blood clots Neuro Neurologic: No system reviewed and no additional complaints, except as documented, No as per HPI, No abnormal gait, No abnormal hearing, No abnormal movements, No abnormal speech, No behavioral changes, No burning sensations, No confusion, No convulsions, No disequilibrium, No dizziness, No localized weakness, No frequent falls, No headache(s), No lack of coordination, No loss of vision, No memory loss, No numbness, No other visual disturbances, No radicular pain, No restless legs, No sensory deficit, No syncope, No tingling, No tremor(s), No weakness and No other Exam Const General: cooperative, healthy appearing, comfortable and no acute distress [facility] Head: normal to inspection Eyes General: appearance normal, both eyes and all related structures Neck Neck: normal visual inspection Neck mass: No Resp Effort & Inspection: normal respiratory effort and able to speak in complete sentences Auscultation: clear to auscultation bilaterally Cardio Rate: regular rate Rhythm: regular rhythm GI Inspection: normal to inspection Palpation: soft and hernia (left inguinal, easily reducible) Auscultation: normal bowel sounds Musc Cervical Spine: normal cervical lordosis Skin Other: Right inner thigh- moderate sized hematoma noted. Firm, nontender. Neuro General: no focal motor deficits and CN's II-XI intact bilaterally Extrem General: edema Laterality: bilateral Severity: pitting and 1+ Psych Appearance: grossly normal Affect: normal affect Assessment and Plan Assessment and Plan (1) Sigmoid diverticulitis: ?Status:?Chronic ?Plan: Dr. Oviedo will plan to perform a laparoscopic sigmoid colectomy with mobilization of splenic flexure, possible hand assist, possible open approach with bilateral transversus abdominal plane block. Procedure details, risks and benefits have been reviewed. Patient has been provided the pre-op instructions including bowel prep and antibiotic prep as well as the pre-surgery Ensure drinks. Patient has had the opportunity to ask and have questions answered. He verbally understands and agrees with the proposed plan. Patient is to hold his aspirin 7 days prior to the procedure. It is recommended the patient start wearing thigh high compression stockings. Dr. Oviedo is willing to proceed with surgery with knowledge of patient's current hematoma of the right upper thigh.? (2) Inguinal hernia of left side without obstruction or gangrene: ?Status:?Acute ?Plan: Dr. Oviedo will plan to perform a left inguinal hernia repair with mesh at a later date following a minimal 3 month recovery.?Patient will return for an update history and physical prior to surgery. I have re-examined the patient. There are no clinical changes since date of exam. Geronimo Oviedo M.D., F.A.C.S.
[2022-07-09] MEDS: Lactated Ringers 1,000 ML 40 ML IV ×3 (06:05→10:01)
[2022-07-09] MEDS: Acetaminophen 500 MG Tablet 1000 MG PO ×3 (06:26→18:19)
[2022-07-09] MEDS: Gabapentin 600 MG Tablet PO (06:26)
--- NOTE | 2022-07-09 06:56 | DCINST_ITS ---
Discharge Instructions Procedure General Surgery Diet Discharge Diet: Light diet - advance as tolerated (if you have questions about your diet instructions, please talk to you doctor.) Activity Discharge Activity: May Not Drive (for 3-5 days or while taking narcotic pain medicine.) May shower in (days): 1 Lifting Restrictions: 10 pounds Dressing / Incision Call your doctor if your incision/area has: Continuous Slow Oozing, Sudden Increased Bleeding, Increased Pain/ Swelling, Increased Redness and Foul Smelling Discharge Call your doctor if you observe: Fever of 101 or Higher Suture Line Care: Avoid Pulling/Pushing and Avoid Pinching/Bending Additional Dressing/Incision Instructions:: Change or remove dressing in 4 days. Leave steri-strips in place for 1 week. Follow Up Care Please Follow Up With: Geronimo Oviedo MD When: Call [phone] to make an appointment to be seen in about 10 days. Test Results: Test results from this visit will be discussed in further detail at your follow- up appointment, if applicable. Discharge Plan Admission Admit Date/Time: 07/09/22 05:25 Primary Reason for Your Visit: Colectomy for sigmoid diverticulitis Attending Provider: Geronimo Oviedo Primary Care Provider: Masha Ortiz Discharge Orders/Prescriptions Prescriptions: New tramadol 50 mg tablet 50 mg PO Q6H PRN (Reason: pain) 3 Days Qty: 9 0RF Continued fenofibric acid (choline) [Trilipix] 135 mg capsule,delayed release(DR/EC) 135 mg PO QHS lisinopril 20 mg tablet 40 mg PO QHS pantoprazole 40 mg tablet,delayed release (DR/EC) 40 mg PO QHS 30 Days Qty: 30 Label Comments: Take 1 tablet by mouth once daily. cholestyramine (with sugar) [Questran] 4 gram powder 9 g PO QHS cholecalciferol (vitamin D3) 50,000 unit capsule 50,000 unit PO 2XW aspirin 81 mg tablet,delayed release (DR/EC) 81 mg PO QHS metronidazole 500 mg tablet 500 mg PO .COMPLEX Rx Instructions: 500 mg PO Take 2 (two) tablets at 1300, 1500, 2300 cephalexin 500 mg capsule 1,000 mg PO DIRECTED Referrals / Follow Up: Masha Ortiz [Primary Care Provider] - Disposition Disposition (needs filled in before D/C Order can be placed): Home, Self Care
[2022-07-09 07:15] LABS: Bedside Glucose 118 mg/dL (74-106)
[2022-07-09] MEDS: Cefotetan 2 GM in 0.9% NS 100 ML IV (07:28)
--- NOTE | 2022-07-09 07:30 | COL_PTH ---
PATIENT: GARRET CHIRINOS LOC: MS3 U#:[id number] AGE/SX: 62/M ROOM: [facility] [place] RE07/09/[address]: Dr. Geronimo Oviedo MD : 1960 BED: 1 DIS: 07/10/2022 SPEC #: [id number] RECD: 07/09/22 11:45 STATUS: NISA FOOTEMariam #: [id number] YVETTE: 07/09/22 07:[address]: Geronimo Oviedo DEPT: SURGICAL PATHOLOGY RECD BY: Alberta Leahy ENTERED: 07/09/22 12:47 SP TYPE: COLON OTHR DR: Masha Ortiz Tissues: A - Colon, NOS B - Colon Donuts C - Colon Donuts Procedures: Surgery Specimen Level III Surgery Specimen Level V HEADER OPERATION: ERAS, laparoscopic sigmoid colectomy with splenic flexure PRE-OP DIAGNOSIS: Elective colectomy for recurrent diverticulitis TISSUE SUBMITTED: A ? Sigmoid colon, B ? Distal donut, C ? Proximal donut MICROSCOPIC DIAGNOSIS A. Sigmoid colon, segmental colectomy: Diverticular disease of colon with focal rupture and associated acute inflammation. Margins of excision with no pathologic change. Three out of three lymph nodes with no pathologic change. B. Distal mucosal donut, excision: No significant pathologic change. C. Proximal mucosal donut, excision: No significant pathologic change. AM:gabriel 07/11/2022 MICROSCOPIC DESCRIPTION Slides are reviewed. GROSS DESCRIPTION A - Received in fixative is one container labeled with the patient's name and designated sigmoid colon. The specimen consists of a segment of colon with attached pericolonic tissue measuring 15 cm in length. One resection margin is opened and other resection margin is stapled. The lumen contains fecal material. No mucosal lesion is identified. Sections reveal multiple diverticula. No obviously ruptured diverticula are noted. More dictation will follow after fixation. / SJ:gabriel 07/09/2022 Many of the diverticula are filled with fecal material. Sections of pericolonic adipose tissue reveal a few small possible lymph nodes. Corn Breeder sections are submitted in six cassettes as follows: 1??opened resection margin, 2 - opposite stapled margin, 3-5 - diverticula, 6 - pericolonic adipose tissue with possible lymph nodes. / SJ:gabriel 07/10/2022 B - Received in fixative is one container labeled with the patient's name and designated distal donut. The specimen consists of a donut-shaped piece of colonic tissue measuring 2 x 2 x 1.5 cm. Multiple becky are noted. Corn Breeder sections are submitted in one cassette. / DEBRA:gabriel 07/09/2022 C - Received in fixative is one container labeled with the patient's name and designated proximal donut. The specimen consists of a donut-shaped piece of colonic tissue measuring 2 x 2 x 1.5 cm. Multiple sutures are noted. Corn Breeder sections are submitted in one cassette. / DEBRA:gabriel 07/09/2022 TC:2 CPT: 54665, 62781 x2
[2022-07-09] MEDS: BUPIVACAINE LIPOSOME/PF 20 ML VIAL OPERA.SITE (08:01)
[2022-07-09] MEDS: Lubricating Jelly 60 GM Tube 30 GM (08:01)
--- NOTE | 2022-07-09 10:53 | PCM.OPRPT ---
Report of Operation Date of Procedure: 07/09/22 Pre-Operative Diagnosis: Multiply recurrent sigmoid diverticulitis Post-Operative Diagnosis: Chronic diverticulitis Surgery/Procedure Performed:: Laparoscopic sigmoid colectomy with laparoscopic bilateral transabdominal plane block Description of Surgical Findings:: Timeout informed consent was obtained. 62-year-old gentleman was taken to the operating room placed on the table underwent general endotracheal intubation esthesia cefotetan 2 g were given intravenously preoperatively he was placed in a low lithotomy position Truong catheter was placed the abdomen was sterilely prepped and draped. 60 cc of 0.25% Marcaine and 20 cc of Exparel and 70 cc of saline was used to mix together for the local anesthetic and tap block. To the right of the umbilicus local was instilled 5 mm trocar inserted 5 Oneal laparoscope inserted the abdomen was insufflated with CO2 to a pressure of 12 mmHg pressure 5 mm trochars and placed in the right lower mid abdomen and right lateral lower quadrant. Inspection revealed quite fibrofatty mesentery. There were adhesions of the mid sigmoid colon to the left pelvic sidewall. No gross purulence. Trocar injury had been safe. I used a Enseal device and release the adhesions to the left pelvic sidewall incised the peritoneum all the way up to the splenic flexure release the entire left side of the colon elevated the sigmoid colon tedious blunt dissection was used to identify the course of the left ureter felt that I had the general position identified the peritoneum was incised and the sigmoid colon down to the peritoneal reflection then I incised the peritoneum closer to the sigmoid colon and using the Enseal device incised this all the way down to the peritoneal reflection. I used then an upsize of the 5 Oneal port in the right lateral lower quadrant to a 10 mm port and inserted a 60 mm [place] stapler with a gold load and and 2 firings transected the rectosigmoid. Then continue to incise mesentery to allow for more freedom the sigmoid colon. There was clearly an indurated area within the mid sigmoid colon consistent with the area of persistent recurrent diverticular disease. Having now freed the entire left colon I transected the mesentery and had good mobility now of the sigmoid. The abdomen was deflated a transverse suprapubic incision was created sharp dissection carried down through the subcu tissue Pfannenstiel incision was created rectus fascia was transversely incised and the peritoneum was elevated and incised a small wound retractor was placed sigmoid colon was exited an appropriate portion the mesentery was incised up to the bowel. The bowel was then transected with a Asad clamp and scalpel. A whip suture of 2-0 Prolene was placed. A 33 mm anvil was inserted and whip suture was secured. That was dabbed with Betadine and drop back within the abdomen. Dacron tape was used to close the small wound protector. The rectum was irrigated with dilute Betadine solution. Sizers were inserted and then the 1233 mm circular anastomotic stapler was easily inserted up to the rectosigmoid. The trocar portion was exited was connected to the anvil the 2 were approximated and direct visualization excellent positioning was achieved the device was fired the device was removed the donuts were inspected and noted be completely intact. Fluid was placed in the pelvis rigid sigmoidoscopy was performed demonstrating absolutely no air leak. Excess fluid is aspirated free from the peritoneum. It is of note that at the very initial part of the operation prior to working on the colon I did a bilateral transabdominal pain block that with local anesthetic under laparoscopic guidance got good block performed bilateral subcostal bilateral lateral abdomen down into the bilateral lower quadrants. At the completion of the procedure try to make sure the greater omentum was overlying more the bowel. The 10 mm trocar site in the right lower quadrant was closed with a grainy needle and a simple suture of 0 Vicryl. Hemostasis was nicely intact. The abdomen deflated the CO2 through an antiviral valve. The Fenistil peritoneum was closed with a running 0 Vicryl. The fascia was closed with a running 0 PDS. PARAG fascial areas were anesthetized as well. Skin edges approximated with interrupted or running subicular 4 Monocryl. Steri-Strips Telfa OpSite dressings applied. Sponge and instrument and needle counts were reported to the surgeon to be correct. Specimen sigmoid colon. Drains none. Blood loss minimal. Clean contaminated procedure Geronimo Oviedo M.D., F.A.C.S. Surgeon: Geronimo Oviedo Type of Anesthesia: General/Regional Anesthesiologist: Eloisa Moses
[2022-07-09] MEDS: Ketorolac 15 MG/ML Vial IV ×2 (13:51→18:18)
--- NOTE | 2022-07-09 16:39 | PCM.PN.SRG ---
Subjective Subjective Patient states pain is very tolerable. Feels like he is doing well. He has been up in the halls walking twice already Objective Data Objective Data Vital Signs: Vital Signs Temp Pulse Resp BP Pulse Ox O2 Del Method O2 Flow Rate 97.9 F 80 16 118/69 97 Room Air 4 07/09/22 14:52 07/09/22 14:52 07/09/22 14:52 07/09/22 14:52 07/09/22 14:52 07/09/22 15:30 07/09/22 13:30 Oxygen Flow Rate (L/min) 4 Oxygen Delivery Method Room Air Weight: 241 lb Body Mass Index (BMI) 32.6 Intake & Output: Intake and Output for Last 24 Hours 07/07/22 07/08/22 07/09/22 23:59 23:59 23:59 Intake Total 2202 / 2202 Output Total 800 / 800 Balance 1402 / 1402 Lab / Micro Data Result Diagrams: 06/29/22 12:13 06/29/22 12:13 Labs: Laboratory Results - last 24 hr 07/09/22 05:57: POC Glucose 118 H Physical Exam GI GI Narrative: Abdomen mildly distended, appropriately tender Assessment & Plan Assessment/Plan (1) Sigmoid diverticulitis: PLAN: Plan Continue with conservative management. The patient is making excellent progress. Geronimo Oviedo M.D., F.A.C.S.
[2022-07-09] MEDS: Pantoprazole Sodium 40 MG Tablet PO (21:00)
[2022-07-09] MEDS: Docusate Sodium 100 MG Capsule PO (21:00)
[2022-07-09] MEDS: Fenofibrate 145 MG Tablet PO (21:00)
[2022-07-09] MEDS: Ensure Plus High Protein 120 ML LIQUID PO (21:01)
[2022-07-10] MEDS: Acetaminophen 500 MG Tablet 1000 MG PO ×3 (00:04→14:08)
[2022-07-10] MEDS: Ketorolac 15 MG/ML Vial IV ×3 (00:05→11:58)
[2022-07-10] MEDS: 0.9% Saline Lock 10 ML Syringe IV ×2 (00:05→06:08)
[2022-07-10 04:05] VITALS: BP 114/68; PULSE 62; RESP 16; TEMP 36.2; O2SAT 97
[2022-07-10 04:06] VITALS: BP 114/68; PULSE 62; RESP 16; TEMP 36.2; O2SAT 97
[2022-07-10 04:58] LABS: Hematocrit 43.7 % (40-54); Hemoglobin 14.3 g/dL (13.0-16.5); Mean Corp Hgb Conc 32.7 g/dL (32-36); Mean Corpuscular Volume 82.6 fL (80-94); Mean Platelet Vol. 8.8 fl (6.2-12.0); Platelet Count 235 K/mm3 (150-450); RBC Distribution Width CV 13.6 % (11.6-14.6); RBC Distribution Width SD 41.2 fl (35.1-43.9); Red Blood Count 5.29 M/mm3 (4.6-6.2); White Blood Count 12.9 K/mm3 (4.4-11.0)
[2022-07-10 05:38] LABS: Anion Gap 8 (5-15); BUN 14 mg/dL (7-18); BUN/Creat Ratio 9.7 RATIO (10-20); Calcium,Total 8.9 mg/dL (8.5-10.1); Chloride 104 mmol/L (98-107); Creatinine, Serum 1.45 mg/dL (0.70-1.30); EST Glomerular Filtration Rate 53 mL/min (>60); Est Glom Filt Rate - Afr Amer 64 mL/min (>60); Estimated Creatinine Clearance 58.72 ml/min; Glucose 113 mg/dL (74-106); Potassium 4.6 mmol/L (3.5-5.1); Sodium Level 138 mmol/L (136-145)
--- NOTE | 2022-07-10 06:02 | PCM.PN.SRG ---
Subjective Subjective Patient feels like he is doing well. More cramps in his low abdominal discomfort today. Was able to ambulate again last night. Has not had any flatus or stool yet. No nausea and tolerating clear liquids. Objective Data Objective Data Vital Signs: Vital Signs Temp Pulse Resp BP Pulse Ox O2 Del Method O2 Flow Rate 97.2 F L 62 16 114/68 97 Room Air 4 07/10/22 04:06 07/10/22 04:06 07/10/22 04:06 07/10/22 04:06 07/10/22 04:06 07/10/22 04:06 07/09/22 13:30 Oxygen Flow Rate (L/min) 4 Oxygen Delivery Method Room Air Weight: 241 lb Body Mass Index (BMI) 32.6 Intake & Output: Intake and Output for Last 24 Hours 07/08/22 07/09/22 07/10/22 23:59 23:59 23:59 Intake Total 2592.67 / 2592.67 Output Total 1000 / 3300 2300 / 2300 Balance 1592.67 / -707.33 -2300 / -2300 Lab / Micro Data Result Diagrams: 07/10/22 04:15 07/10/22 04:15 Labs: Laboratory Results - last 24 hr 07/09/22 05:57: POC Glucose 118 H 07/10/22 04:15: WBC 12.9 H, RBC 5.29, Hgb 14.3, Hct 43.7, MCV 82.6, MCH 27.0, MCHC 32.7, RDW Std Deviation 41.2, RDW Coeff of Billy 13.6, Plt Count 235, MPV 8.8 07/10/22 04:15: Sodium 138, Potassium 4.6, Chloride 104, Carbon Dioxide 26.0, Anion Gap 8, BUN 14, Creatinine 1.45 H, Estim Creat Clear Calc 58.72, Est GFR (MDRD) Af Amer 64, Est GFR (MDRD) Non-Af 53 L, BUN/Creatinine Ratio 9.7 L, Glucose 113 H, Calcium 8.9 Physical Exam Const no apparent distress Resp normal respiratory effort GI GI Narrative: Soft, slightly distended, appropriately tender, laparoscopic dressings clean dry and intact Assessment & Plan Assessment/Plan (1) Sigmoid diverticulitis: PLAN: Patient is making steady progress. We will have the Truong catheter removed. Advance to a transitional diet. Possible discharge home later today. Geronimo Oviedo M.D., F.A.C.S.
[2022-07-10 07:31] VITALS: O2SAT 95
[2022-07-10 08:53] VITALS: BP 130/78; PULSE 62; RESP 16; TEMP 36.5; O2SAT 100
[2022-07-10 09:21] VITALS: BP 130/78; PULSE 62; RESP 16; TEMP 36.5; O2SAT 100
[2022-07-10] MEDS: Ensure Plus High Protein 120 ML LIQUID PO (09:45)
[2022-07-10] MEDS: Docusate Sodium 100 MG Capsule PO (09:45)
[2022-07-10] MEDS: Enoxaparin 40 MG/0.4 ML Syringe SC (09:45)
--- NOTE | 2022-07-10 10:06 | CASEMGMT ---
AMADOR CM in to pt room, pt sitting up in chair in no distress. Pt states he has been walking the halls and is doing well. Possible dc today. Pt denies any homegoing needs.
[2022-07-10 14:31] VITALS: BP 128/72; PULSE 64; RESP 16; TEMP 36.6; O2SAT 100
--- NOTE | 2022-07-10 14:32 | PCM.PN.BLA ---
Progress Note Called to follow-up on patient. Patient has voided twice without any issues. He denies nausea, vomiting. He has tolerated transitional diet. He has positive flatus. Negative BM. Patient has been walking the hallways multiple times. Patient has voiced and met criteria to be discharged to home.
== END 2022-07-10 15:31 | disposition home or self-care (01) | DRG 331 ==
LOC: ACINP 05:31 → MS3 11:18
PROVIDERS: Anesthesiology; Admitting Provider Surgery; PCP Family Medicine; Referring Provider Surgery; Visit Provider Surgery
PROC: 0DTN0ZZ Resection of Sigmoid Colon, Open Approach (ICD-10-PCS; CPT 44204; principal; 2022-07-09 07:05)
DX: K57.32 Diverticulitis of large intestine without perforation or abscess without bleeding (principal); I10 Essential (primary) hypertension; K21.9 Gastro-esophageal reflux disease without esophagitis; K40.90 Unilateral inguinal hernia, without obstruction or gangrene, not specified as recurrent; K58.9 Irritable bowel syndrome, unspecified; Z90.49 Acquired absence of other specified parts of digestive tract; Z79.82 Long term (current) use of aspirin; Z79.899 Other long term (current) drug therapy; Z87.891 Personal history of nicotine dependence
CPT/HCPCS: 36415; 80048; 82962; 83735; 85027; 88304; 88307; 93005; 94762; J7120; A4216; C1760; J2405; J3475; J3490

== ENCOUNTER → 2022-09-03 | Outpatient (CLI) | payer OTHER, SELFPAY ==
[2022-09-03 15:53] LABS: Anion Gap 7 (5-15); BUN 16 mg/dL (7-18); BUN/Creat Ratio 16.3 RATIO (10-20); Calcium,Total 9.6 mg/dL (8.5-10.1); Chloride 104 mmol/L (98-107); Creatinine, Serum 0.98 mg/dL (0.70-1.30); EST Glomerular Filtration Rate 82 mL/min (>60); Est Glom Filt Rate - Afr Amer 100 mL/min (>60); Glucose 74 mg/dL (74-106); Potassium 4.5 mmol/L (3.5-5.1); Sodium Level 140 mmol/L (136-145)
== END | disposition home or self-care (01) ==
LOC: LAB 15:35
PROVIDERS: PCP Family Medicine; Visit Provider Family Medicine
DX: E29.1 Testicular hypofunction (principal); Z51.81 Encounter for therapeutic drug level monitoring
CPT/HCPCS: 80048; 84402; 84403

== ENCOUNTER → 2022-11-12 | Outpatient (CLI) | payer OTHER, SELFPAY ==
[2022-11-12 15:49] LABS: Anion Gap 7 (5-15); BUN 17 mg/dL (7-18); BUN/Creat Ratio 14.9 RATIO (10-20); Calcium,Total 9.4 mg/dL (8.5-10.1); Chloride 103 mmol/L (98-107); Creatinine, Serum 1.14 mg/dL (0.70-1.30); EST Glomerular Filtration Rate 69 mL/min (>60); Est Glom Filt Rate - Afr Amer 84 mL/min (>60); Glucose 90 mg/dL (74-106); Potassium 4.3 mmol/L (3.5-5.1); Sodium Level 139 mmol/L (136-145)
[2022-11-16 11:09] LABS: Testosterone, Free 4.59 ng/dL (5.00-21.00)
[2022-11-16 18:03] LABS: Testosterone, Total 328 ng/dL (264-916)
== END | disposition home or self-care (01) ==
LOC: BFHLAB 13:26
PROVIDERS: PCP Family Medicine; Visit Provider Family Medicine
DX: E29.1 Testicular hypofunction (principal); Z51.81 Encounter for therapeutic drug level monitoring
CPT/HCPCS: 36415; 80048; 84402; 84403

== ENCOUNTER → 2023-04-09 | Outpatient (CLI) | payer OTHER, SELFPAY ==
[2023-04-09 10:30] LABS: Absolute Lymphocyte Count 1.51 X10^3/uL (0.83-4.51); Absolute Neutrophil Count 4.3 X10^3/uL (2.0-7.7); Basophil# 0.04 X10^3/uL; Basophil% 0.6 % (0-1); Eosinophil# 0.09 X10^3/uL; Eosinophils% 1.4 % (0-5); Hematocrit 50.6 % (40-54); Hemoglobin 16.3 g/dL (13.0-16.5); Lymphocyte # 1.51 X10^3/ul (0.83-4.51); Lymphocyte % 23.6 % (19-41); Mean Corp Hgb Conc 32.2 g/dL (32-36); Mean Corpuscular Hgb 27.4 pg (27.0-32.0); Mean Platelet Vol. 8.4 fl (6.2-12.0); Monocyte# 0.45 X10^3/uL; NRBC Flagged by Analyzer 0 % (0-5); Neutrophil # 4.28 X10^3/uL (2.7-7.7); Neutrophil % 66.9 % (47-70); Platelet Count 222 K/mm3 (150-450); RBC Distribution Width CV 13.2 % (11.6-14.6); RBC Distribution Width SD 40.7 fl (35.1-43.9); Red Blood Count 5.95 M/mm3 (4.6-6.2); White Blood Count 6.4 K/mm3 (4.4-11.0)
[2023-04-09 11:10] LABS: AST(SGOT) 15 U/L (15-37); Alanine Aminotransfer ALT/SGPT 23 U/L (16-61); Albumin, Serum 3.7 g/dL (3.2-5.0); Alkaline Phosphatase 56 U/L (45-117); Anion Gap 5 (5-15); BUN 16 mg/dL (7-18); BUN/Creat Ratio 12.1 RATIO (10-20); Calcium,Total 9.4 mg/dL (8.5-10.1); Chloride 103 mmol/L (98-107); Cholesterol 136 mg/dL (200); Creatinine, Serum 1.32 mg/dL (0.70-1.30); EST Glomerular Filtration Rate 58 mL/min (>60); Est Glom Filt Rate - Afr Amer 71 mL/min (>60); Globulin 3.6 g/dL (2.2-4.2); Glucose 85 mg/dL (74-106); High Density Lipoprotein 42 mg/dL; PSA,Total - Annual Screen 0.48 ng/mL (0.00-4.00); Potassium 4.5 mmol/L (3.5-5.1); Protein, Total 7.3 g/dL (6.4-8.2); Sodium Level 137 mmol/L (136-145); Thyroid Stim Hormone (TSH) 4.33 uIU/mL (0.358-3.74); Triglycerides 77 mg/dL; Very Low Density Lipoprotein 15 mg/dL (5-40)
[2023-04-12 11:09] LABS: Testosterone, % Free 2.69 % (1.50-4.20); Testosterone, Free 7.99 ng/dL (5.00-21.00); Testosterone, Total 297 ng/dL (264-916)
== END | disposition home or self-care (01) ==
LOC: MTLAB 07:40
PROVIDERS: PCP Family Medicine; Referring Provider Family Medicine; Visit Provider Family Medicine
DX: E78.5 Hyperlipidemia, unspecified (principal); Z12.5 Encounter for screening for malignant neoplasm of prostate; Z51.81 Encounter for therapeutic drug level monitoring; R53.83 Other fatigue; E29.1 Testicular hypofunction
CPT/HCPCS: 36415; 80053; 80061; 84153; 84402; 84403; 84443; 85025; G0103

== ENCOUNTER → 2023-07-11 | Outpatient (CLI) | payer OTHER, SELFPAY ==
[2023-07-11 11:43] LABS: AST(SGOT) 14 U/L (15-37); Alanine Aminotransfer ALT/SGPT 25 U/L (16-61); Albumin, Serum 3.8 g/dL (3.2-5.0); Alkaline Phosphatase 56 U/L (45-117); Anion Gap 6 (5-15); BUN 12 mg/dL (7-18); BUN/Creat Ratio 9.5 RATIO (10-20); Calcium,Total 9.3 mg/dL (8.5-10.1); Chloride 105 mmol/L (98-107); Creatinine, Serum 1.26 mg/dL (0.70-1.30); EST Glomerular Filtration Rate 62 mL/min (>60); Est Glom Filt Rate - Afr Amer 75 mL/min (>60); Free T3 2.5 pg/mL (2.18-3.98); Globulin 3.9 g/dL (2.2-4.2); Glucose 86 mg/dL (74-106); Potassium 4.4 mmol/L (3.5-5.1); Protein, Total 7.7 g/dL (6.4-8.2); Sodium Level 138 mmol/L (136-145); Thyroid Stim Hormone (TSH) 3.27 uIU/mL (0.358-3.74)
[2023-07-20 05:08] LABS: Testosterone Free 4.7 pg/mL (6.6-18.1)
== END | disposition home or self-care (01) ==
LOC: MTLAB 08:40
PROVIDERS: PCP Family Medicine; Referring Provider Family Medicine; Visit Provider Family Medicine
DX: E03.9 Hypothyroidism, unspecified (principal); E29.1 Testicular hypofunction
CPT/HCPCS: 36415; 80053; 84402; 84403; 84439; 84443; 84481

== ENCOUNTER 2023-08-01 05:55 | Day surgery (SDC) | payer OTHER, SELFPAY ==
--- NOTE | 2023-07-25 08:20 | EKG12_ITS ---
Test Reason : PRE OP Blood Pressure : / mmHG Vent. Rate : 070 BPM Atrial Rate : 070 BPM P-R Int : 132 ms QRS Dur : 098 ms QT Int : 394 ms P-R-T Axes : 024 028 053 degrees QTc Int : 425 ms Normal sinus rhythm Normal ECG Confirmed by DESIRAE CONWAY, DEVORAH ([id number]), editor & co founder DIANA GALLO ([id number]) on 07/29/2023 2:04:54 PM Referred By: Geronimo Oviedo Confirmed By:DEVORAH MERRILL MD
[2023-07-25 09:12] LABS: Hematocrit 52.6 % (40-54); Hemoglobin 16.6 g/dL (13.0-16.5); Mean Corp Hgb Conc 31.6 g/dL (32-36); Mean Corpuscular Hgb 26.9 pg (27.0-32.0); Mean Corpuscular Volume 85.4 fL (80-94); Mean Platelet Vol. 8.4 fl (6.2-12.0); Platelet Count 223 K/mm3 (150-450); RBC Distribution Width CV 13.7 % (11.6-14.6); RBC Distribution Width SD 42.6 fl (35.1-43.9); Red Blood Count 6.16 M/mm3 (4.6-6.2); White Blood Count 9.2 K/mm3 (4.4-11.0)
[2023-08-01 06:25] VITALS: BP 109/90; PULSE 74; RESP 16; TEMP 36.4; O2SAT 100; BMI 34.4
[2023-08-01] MEDS: Lactated Ringers 1,000 ML 15 ML IV (06:29)
--- NOTE | 2023-08-01 06:40 | PCM.HP.BLA ---
History and Physical Date of Admission: 08/01/23 Chief Complaint: update for hernia surgery Public Policy Mediator Required: No Is patient in pain?: No Allergies latex Allergy (Mild, Verified 06/27/23 08:02) Rash Medications fenofibric acid (choline) 135 mg capsule,delayed release (Trilipix) 135 mg PO QHS Cholesterol 11/08/17 [History Confirmed 06/27/23] pantoprazole 40 mg tablet,delayed release 40 mg PO QHS GERD 30 days #30 tabs 10/23/18 [History Confirmed 06/27/23] cholecalciferol (vitamin D3) 1,250 mcg (50,000 unit) capsule 50,000 unit PO 2XW supplement 05/29/19 [History Confirmed 06/27/23] cholestyramine (with sugar) 4 gram oral powder (Questran) 9 g PO QHS IBS 05/29/19 [History Confirmed 06/27/23] lisinopril 20 mg tablet 40 mg PO QHS BP 05/29/19 [History Confirmed 06/27/23] PFSH Medical History Acid reflux Environmental allergies Former smoker Hematoma History of echocardiogram History of lipoma History of steroid therapy History of stress test Hyperlipidemia Hypertension IBS (irritable bowel syndrome) Knee pain Mass of subcutaneous tissue Wears glasses Surgical History History of cholecystectomy History of colectomy (~06/2022) History of colonoscopy History of tonsillectomy Family History Mother Breast cancer Cancer bladder cancer HypertensionFather Diabetes Heart disease High cholesterol Cancer skin cancer Social History Smoking Status: Former smoker alcohol intake: never HPI HPI Surgical H&P: Yes HPI: Patient is a 63 y/o M I am following for left inguinal hernia possible right. Patient is s/p laparoscopic sigmoid colectomy with laparoscopic bilateral TAP block on 07/09/[address] Oviedo. He had an uneventful recovery from surgery. At his initial office visit with Dr. Oviedo on 04/11/2022, he was noted to have recurrent diverticulitis as well as a left inguinal. Patient was told he also had a right inguinal hernia, however on the CT scan of the ab/pel on 12/14/21 did not demonstrate this finding and a right inguinal hernia was not detected in office on examination. Patient notes the left groin hernia has become more painful intermittently if he is standing or walking long distances. Patient denies any change in bowel habits. He notes some right groin discomfort, however he is unsure if this is due to compensating for the left groin discomfort. Patient denies any recent hospitalizations or illnesses. He states he stopped his aspirin per his PCP. Patient is very active. He is a bike rider and enjoys riding long distances. He also travels for work riding in a car. ROS General General: No weight change, appetite, fatigue, colon cancer, breast cancer or weakness HEENT HEENT: No difficulty swallowing, eye injury, eye surgery, swollen glands or hoarseness Endo Endocrine: No thyroid disease, diabetes mellitus, thyroid cancer, Hair loss, heat intolerance or cold intolerance Skin Skin: No rash or changing moles Breast Breast: No left breast lump, right breast lump, nipple discharge, breast pain, abnormal mammogram, abnormal US or breast enlargement Musc Musculoskeletal: No back problems, arthritis, rheumatoid arthritis, gout or joint pain Cardio Cardiovascular: No murmur, pacemaker, heart disease, atrial fibrillation, high blood pressure, heart attack, heart stent, palpitations, shortness of breat with exertion or chest pain Psych Psychiatric: No depression, anxiety or hearing voices Resp Respiratory: No shortness of breath, No sleep apnea, No cough, No COPD, No asthma, No emphysema and No wheezing Gastro Gastrointestinal: No abdominal pain, No nausea or vomiting, No diarrhea, No constipation, No blood in stool, Yes acid reflux, No hemorrhoids, No ulcers, No gallbladder problem and No black,tarry stools Cj Hematologic: No blood thinners, No blood disorders, No bleeding, No anemia and No blood clots Neuro Neurologic: No system reviewed and no additional complaints, except as documented, No as per HPI, No abnormal gait, No abnormal hearing, No abnormal movements, No abnormal speech, No behavioral changes, No burning sensations, No confusion, No convulsions, No disequilibrium, No dizziness, No localized weakness, No frequent falls, No headache(s), No lack of coordination, No loss of vision, No memory loss, No numbness, No other visual disturbances, No radicular pain, No restless legs, No sensory deficit, No syncope, No tingling, No tremor(s), No weakness and No other Exam Const General: cooperative, healthy appearing, comfortable and no acute distress [facility] Head: normal to inspection Eyes General: appearance normal, both eyes and all related structures Neck Neck: normal visual inspection Neck mass: No Chest Chest palpation & inspection: normal inspection of the chest Resp Effort & Inspection: normal respiratory effort Auscultation: clear to auscultation bilaterally Cardio Rate: regular rate Rhythm: regular rhythm GI Inspection: scar (previous laparoscopic incisions nicely healed) and other (overweight) Palpation: soft, no hepatosplenomegaly and nontender Auscultation: normal bowel sounds Other: left groin- easily reducible left inguinal hernia. No true palpable right inguinal hernia detected. Musc Cervical Spine: normal cervical lordosis Skin General: no rashes or lesions noted Neuro General: no focal motor deficits and CN's II-XI intact bilaterally Extrem General: normal to inspection Psych Appearance: grossly normal Affect: normal affect Assessment and Plan Assessment and Plan (1) Inguinal hernia of left side without obstruction or gangrene: Status: Acute Plan: Dr. Oviedo will plan to perform a laparoscopic left inguinal hernia repair possible bilateral inguinal hernia repair. Procedure details, risks and benefits have been explained. Patient has had the opportunity to ask and have questions answered. We discussed it would be recommended the patient be off of work for 2 weeks due to the long distance driving. Once he is able to return to work, if he travels longer than 1 hour, he is to stop get out and walk around. It was also recommended that the patient avoid biking for 8 weeks from surgery. Patient verbally understands and agrees with the plan On further review it is apparent that the patient actually likely has bilateral inguinal hernias. He is very much aware that we anticipate pursuing a laparoscopic bilateral inguinal hernia repair. He has had an opportunity to ask and have questions answered. We will proceed as noted. Geronimo Oviedo M.D., F.A.C.S.
--- NOTE | 2023-08-01 06:45 | DCINST_ITS ---
Discharge Instructions Procedure General Surgery Diet Discharge Diet: Light diet - advance as tolerated (if you have questions about your diet instructions, please talk to you doctor.) Activity Discharge Activity: May Not Drive (for 3-5 days or while taking narcotic pain medicine.) May shower in (days): 1 Lifting Restrictions: 10 pounds Dressing / Incision Call your doctor if your incision/area has: Continuous Slow Oozing, Sudden Increased Bleeding, Increased Pain/ Swelling, Increased Redness and Foul Smelling Discharge Call your doctor if you observe: Fever of 101 or Higher Suture Line Care: Avoid Pulling/Pushing and Avoid Pinching/Bending Additional Dressing/Incision Instructions:: Change or remove dressing in 4 days. Leave steri-strips in place for 1 week. Follow Up Care Please Follow Up With: Geronimo Oviedo MD When: Call [phone] to make an appointment to be seen in about 10 days. Test Results: Test results from this visit will be discussed in further detail at your follow- up appointment, if applicable. Discharge Plan Admission Attending Provider: Geronimo Oviedo Primary Care Provider: Masha Ortiz Discharge Orders/Prescriptions Prescriptions: No Action fenofibric acid (choline) [Trilipix] 135 mg capsule,delayed release(DR/EC) 135 mg PO QHS lisinopril 20 mg tablet 40 mg PO QHS pantoprazole 40 mg tablet,delayed release (DR/EC) 40 mg PO QHS 30 Days Qty: 30 Patient Comments: Take 1 tablet by mouth once daily. cholestyramine (with sugar) [Questran] 4 gram powder 9 g PO QHS cholecalciferol (vitamin D3) 50,000 unit capsule 50,000 unit PO 2XW Referrals / Follow Up: Masha Ortiz DO [Primary Care Provider] - Disposition Disposition (needs filled in before D/C Order can be placed): Home, Self Care
[2023-08-01] MEDS: Cefazolin 2 GM in 0.9% Normal Saline (100mL Bag) 100 ML IV (07:26)
--- NOTE | 2023-08-01 09:07 | OP.PCM_ITS ---
Report of Operation Date of Procedure: 08/01/23 Pre-Operative Diagnosis: Bilateral indirect inguinal hernias with a large adher ent cord lipomas Post-Operative Diagnosis: Same Surgery/Procedure Performed:: Laparoscopic bilateral inguinal herniorrhaphy Left Bard 3D max mesh lot [id number], reference [id number], expiry date 12/11/2027 Right Bard 3D max large mesh, lot [id number], reference [id number], expiry date 12/11/2027 Description of Surgical Findings:: Timeout informed consent was obtained. 63-year-old gentleman is taken the operating placed on table underwent general endotracheal ovation esthesia. The abdomen sterilely prepped and draped. 2 g of Ancef were given intravenously. 0.5% Marcaine was used as a local anesthetic. Throughout the procedure a total of 30 cc was used. Skin sites were Joshua size. At the superior aspect the umbilicus local was instilled vertical incision was created sharp dissection carried down through the substance tissue direct access was gained to the abdomen with a varies needle the abdomen was inflated with CO2 to a pressure of 10 mmHg pressure. 10 mm trocar was inserted. 10 mm laparoscope inserted. No evidence trocar injuries. From the previous laparoscopic sigmoid colectomy there were no gross anterior abdominal wall adhesions. 5 mm trocars were placed in the right left lower quadrant under laparoscopic visualization. Laparoscopic bilateral inguinal nerve blocks were performed with laparoscopic control of the Marcaine. The peritoneum superior and lateral to the internal ring on the left was incised carried medially then the dissection became extraordinarily T status. The patient is obese. The fibrofatty tissue was significant. Cord and an anatomy was difficult to identified. Large amount of fibrofatty tissue was encountered in the left groin the internal ring could be identified large amounts of fibrofatty tissue was withdrawn from the inguinal canal as well as posteriorly with blunt dissection felt that I got the vast majority of this fatty tissue reduced. Where needed hemostasis obtained with electrocautery and Hem-o-rosenda clips. Did retropubic dissection. This was all carefully done bluntly. I then did a similar technique on the right there was somewhat less fibrofatty tissue but still a significant amount was present wrapped around the cord and posterior to the cord. Much more so than normally identified. Finally it was felt that I had the fibrofatty tissue most reduced. A Bard 3D max large mesh was placed on the left it was secured laterally superiorly and medially with secure strap and then a mesh was placed on the right the tube met in the mi ddle and the right mesh was secured with secure strap as well. I then gently withdrew on the fibrofatty tissue and secured the medial portions of the mesh to the pubic tubercle in an attempt to keep the mesh flat against the abdominal wall. Then approximated the peritoneum to itself again using secure strap or Hem-o-rosenda clips. All the time trying to keep the fibrofatty tissue persistently reduced. Complete obliteration to the mesh was achieved. The defect at the umbilicus was then subsequently repaired after the pneumoperitoneum was evacuated through an antiviral valve. A 0 Nurolon figur e-of-eight suture was placed at the umbilicus. Skin edges were approximated opted for Monocryl subdermal stitches. Steri-Strips Telfa OpSite dressings applied. Sponge and instrument and needle counts were reported to the surgeon to be correct. Blood loss was minimal. This procedure was felt to be technically very challenging. Geronimo Oviedo M.D., F.A.C.S. Surgeon: Geronimo Oviedo Type of Anesthesia: General and Local Anesthesiologist: Susan Betancourt
[2023-08-01] MEDS: Bupivacaine 0.5% PF 10 ML VIAL (09:11)
[2023-08-01 09:30] VITALS: BP 109/90; BP 154/100; PULSE 93; RESP 16; TEMP 36; O2SAT 96
[2023-08-01 09:45] VITALS: BP 109/90; BP 141/78; PULSE 77; RESP 16; O2SAT 95
[2023-08-01 09:55] VITALS: BP 109/90; BP 128/89; PULSE 75; RESP 16; TEMP 36.1; O2SAT 96
[2023-08-01] MEDS: HYDROcodone Bitartrate/Apap 5/325 Tablet PO (10:23)
[2023-08-01] MEDS: Ketorolac 30 MG/ML Syringe IV (11:34)
[2023-08-01 11:57] VITALS: BP 109/90; BP 131/96; PULSE 76; RESP 16; TEMP 36.5; O2SAT 95
== END 2023-08-01 12:09 | disposition home or self-care (01) ==
LOC: SDC 05:57 → AC 05:57
PROVIDERS: PCP Family Medicine; Referring Provider Surgery; Visit Provider Surgery
PROC: (CPT 49650; principal; 2023-08-01 07:10)
DX: K40.20 Bilateral inguinal hernia, without obstruction or gangrene, not specified as recurrent (principal); E78.5 Hyperlipidemia, unspecified; Z87.891 Personal history of nicotine dependence; I10 Essential (primary) hypertension; E66.9 Obesity, unspecified; Z79.899 Other long term (current) drug therapy
CPT/HCPCS: 49650; 00840; 36415; 85027; 93005; J7120; C1781; J2405

== ENCOUNTER → 2023-10-15 | Outpatient (CLI) | payer OTHER, SELFPAY ==
[2023-10-15 12:58] LABS: AST(SGOT) 15 U/L (15-37); Alanine Aminotransfer ALT/SGPT 24 U/L (16-61); Albumin, Serum 3.6 g/dL (3.2-5.0); Alkaline Phosphatase 49 U/L (45-117); Anion Gap 7 (5-15); BUN 17 mg/dL (7-18); BUN/Creat Ratio 14.5 RATIO (10-20); Calcium,Total 9.3 mg/dL (8.5-10.1); Chloride 107 mmol/L (98-107); Creatinine, Serum 1.17 mg/dL (0.70-1.30); EST Glomerular Filtration Rate 67 mL/min (>60); Est Glom Filt Rate - Afr Amer 81 mL/min (>60); Free T3 2.4 pg/mL (2.18-3.98); Globulin 3.5 g/dL (2.2-4.2); Glucose 91 mg/dL (74-106); Potassium 4.1 mmol/L (3.5-5.1); Protein, Total 7.1 g/dL (6.4-8.2); Sodium Level 139 mmol/L (136-145); T4 Free Direct 0.95 ng/dL (0.76-1.46); Thyroid Stim Hormone (TSH) 4.12 uIU/mL (0.358-3.74)
[2023-10-24 13:07] LABS: Testosterone, % Free 2.47 % (1.50-4.20); Testosterone, Free 15.07 ng/dL (5.00-21.00); Testosterone, Total 610 ng/dL (264-916)
== END | disposition home or self-care (01) ==
LOC: BFHLAB 08:35
PROVIDERS: PCP Family Medicine; Visit Provider Family Medicine
DX: E03.9 Hypothyroidism, unspecified (principal); E29.1 Testicular hypofunction
CPT/HCPCS: 36415; 80053; 84402; 84403; 84439; 84443; 84481

== ENCOUNTER → 2023-12-09 | Outpatient (CLI) | payer OTHER, SELFPAY ==
[2023-12-09 15:33] LABS: Absolute Lymphocyte Count 1.66 X10^3/uL (0.83-4.51); Absolute Neutrophil Count 4.5 X10^3/uL (2.0-7.7); Basophil# 0.02 X10^3/uL; Basophil% 0.3 % (0-1); Eosinophil# 0.09 X10^3/uL; Eosinophils% 1.3 % (0-5); Hematocrit 52.8 % (40-54); Hemoglobin 16.6 g/dL (13.0-16.5); Lymphocyte # 1.66 X10^3/ul (0.83-4.51); Lymphocyte % 23.7 % (19-41); Mean Corp Hgb Conc 31.4 g/dL (32-36); Mean Platelet Vol. 8.9 fl (6.2-12.0); Monocyte# 0.71 X10^3/uL; Monocyte% 10.1 % (0-10); NRBC Flagged by Analyzer 0 % (0-5); Neutrophil # 4.49 X10^3/uL (2.7-7.7); Neutrophil % 64.2 % (47-70); Platelet Count 212 K/mm3 (150-450); RBC Distribution Width CV 13.9 % (11.6-14.6); RBC Distribution Width SD 43.6 fl (35.1-43.9); Red Blood Count 6.14 M/mm3 (4.6-6.2)
[2023-12-09 16:08] LABS: ALB/GLOB Ratio 1.1 RATIO (0.9-2.4); AST(SGOT) 21 U/L (15-37); Alanine Aminotransfer ALT/SGPT 27 U/L (16-61); Albumin, Serum 3.9 g/dL (3.2-5.0); Alkaline Phosphatase 56 U/L (45-117); Anion Gap 2 (5-15); BUN 17 mg/dL (7-18); BUN/Creat Ratio 13.1 RATIO (10-20); Calcium,Total 9.1 mg/dL (8.5-10.1); Chloride 103 mmol/L (98-107); EST Glomerular Filtration Rate 59 mL/min (>60); Est Glom Filt Rate - Afr Amer 72 mL/min (>60); Free T3 2.5 pg/mL (2.18-3.98); Globulin 3.6 g/dL (2.2-4.2); Glucose 80 mg/dL (74-106); Potassium 4.2 mmol/L (3.5-5.1); Protein, Total 7.5 g/dL (6.4-8.2); Sodium Level 136 mmol/L (136-145); T4 Free Direct 0.86 ng/dL (0.76-1.46); Thyroid Stim Hormone (TSH) 3.32 uIU/mL (0.358-3.74)
== END | disposition home or self-care (01) ==
LOC: BFHLAB 11:33
PROVIDERS: PCP Family Medicine; Visit Provider Family Medicine
DX: E03.9 Hypothyroidism, unspecified (principal); Z51.81 Encounter for therapeutic drug level monitoring
CPT/HCPCS: 36415; 80053; 84439; 84443; 84481; 85025

== ENCOUNTER 2024-01-14 05:57 | Day surgery (SDC) | payer OTHER, SELFPAY ==
--- NOTE | 2024-01-14 06:19 | PCM.HP.BLA ---
History and Physical Date of Admission: 01/14/24 Chief Complaint: EGD Eggs Inspector Required: No Is patient in pain?: No Allergies latex Allergy (Mild, Verified 01/03/24 13:17) Rash Medications fenofibric acid (choline) 135 mg capsule,delayed release (Trilipix) 135 mg PO QHS Cholesterol 11/08/17 [History Confirmed 01/03/24] pantoprazole 40 mg tablet,delayed release 40 mg PO QHS GERD 30 days #30 tabs 10/23/18 [History Confirmed 01/03/24] cholecalciferol (vitamin D3) 1,250 mcg (50,000 unit) capsule 50,000 unit PO 2XW supplement 05/29/19 [History Confirmed 01/03/24] cholestyramine (with sugar) 4 gram oral powder (Questran) 9 g PO QHS IBS 05/29/19 [History Confirmed 01/03/24] lisinopril 20 mg tablet 40 mg PO QHS BP 05/29/19 [History Confirmed 01/03/24] levothyroxine 25 mcg tablet 25 mcg PO QDAY 01/03/24 [History Confirmed 01/03/24] PFSH Medical History Acid reflux Dietary restriction Environmental allergies Former smoker Hematoma History of diverticulitis History of echocardiogram History of lipoma History of stress test Hyperlipidemia Hypertension IBS (irritable bowel syndrome) Inguinal hernia of left side without obstruction or gangrene Knee pain Mass of subcutaneous tissue Non-recurrent bilateral inguinal hernia Wears glasses Surgical History History of cholecystectomy History of colectomy (~06/2022) History of colonoscopy History of tonsillectomy S/P bilateral inguinal hernia repair Family History Mother Breast cancer Cancer bladder cancer HypertensionFather Diabetes Heart disease High cholesterol Cancer skin cancer Social History Smoking Status: Former smoker alcohol intake: never HPI HPI HPI: 63-year-old gentleman returns to discuss potential for an upper endoscopy. On July 09, 2022 because of multiple recurrent bouts of sigmoid diverticulitis I assisted him with a laparoscopic sigmoid colectomy. Fortunately he did well with that. More recently on August 01, 2023 I assisted him with a laparoscopic bilateral inguinal hernia repair. This was technically quite challenging due to the fibrofatty tissue present. He was seen back in the office on August 08 2023 by Ruth Ann Westfall PA-C. He had noted some swelling of his left testicle. Moderate left scrotal swelling was identified. The repairs were felt to be intact. Conservative measures were recommended. His previous colonoscopy was done at [facility] and on March 27 the patient had a colonoscopy with a distal transverse colon polypectomy showing a postinflammatory type polyp and negative for dysplasia. Patient notes some intermittent mild left testicular discomfort. He has resumed weightlifting but not to the degree previously. He also notes a slight lump at the umbilicus which she states is slowly getting better. He brings me records from a previous upper endoscopy. July 07, 2018 through [facility] he had an EGD performed. This felt to be erosion and inflammation nodularity of the duodenal bulb. Moderate erythema and erosions of the gastric antrum. Multiple sessile polyps of the stomach. 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 The gastric antrum showed gastric antral type mucosa with reactive gastropathy. Distal esophagus showed squamous Koza with focal reactive epithelial change consistent with reflux. There was a separate fragment of gastric Oxyntic type mucosa with mild chronic inflammation. [place] to possibly a can be a contaminant from the stomach biopsy. H. pylori was negative. The patient has been on proton pump inhibitors for possibly as long as 15 years. He does get indigestion. He has not elevated the head of his bed but he is other soria learned to live with the indigestion and reflux symptoms. He enjoys bicycle riding and weightlifting. He does have some symptoms consistent with bloating as well. He has concerns regarding his ongoing epigastric discomfort and reflux symptoms and previous abnormal pathology. ROS General General: No weight change, appetite, fatigue, colon cancer, breast cancer or weakness HEENT HEENT: No difficulty swallowing, eye injury, eye surgery, swollen glands or hoarseness Endo Endocrine: No thyroid disease, diabetes mellitus, thyroid cancer, Hair loss, heat intolerance or cold intolerance Skin Skin: No rash or changing moles Breast Breast: No left breast lump, right breast lump, nipple discharge, breast pain, abnormal mammogram, abnormal US or breast enlargement Musc Musculoskeletal: No back problems, arthritis, rheumatoid arthritis, gout or joint pain Cardio Cardiovascular: No murmur, pacemaker, heart disease, atrial fibrillation, high blood pressure, heart attack, heart stent, palpitations, shortness of breat with exertion or chest pain Psych Psychiatric: No depression, anxiety or hearing voices Resp Respiratory: No shortness of breath, No sleep apnea, No cough, No COPD, No asthma, No emphysema and No wheezing Gastro Gastrointestinal: No abdominal pain, No nausea or vomiting, No diarrhea, No constipation, No blood in stool, Yes acid reflux, No hemorrhoids, No ulcers, No gallbladder problem and No black,tarry stools Cj Hematologic: No blood thinners, No blood disorders, No bleeding, No anemia and No blood clots Neuro Neurologic: No system reviewed and no additional complaints, except as documented, No as per HPI, No abnormal gait, No abnormal hearing, No abnormal movements, No abnormal speech, No behavioral changes, No burning sensations, No confusion, No convulsions, No disequilibrium, No dizziness, No localized weakness, No frequent falls, No headache(s), No lack of coordination, No loss of vision, No memory loss, No numbness, No other visual disturbances, No radicular pain, No restless legs, No sensory deficit, No syncope, No tingling, No tremor(s), No weakness and No other Exam Const General: cooperative, healthy appearing, comfortable and no acute distress Nutritional Appearance: obese [facility] Head: normal to inspection Eyes General: appearance normal, both eyes and all related structures Neck Neck: normal visual inspection Chest Chest palpation & inspection: normal inspection of the chest Resp Effort & Inspection: normal respiratory effort Auscultation: clear to auscultation bilaterally Cardio Rate: regular rate Rhythm: regular rhythm GI Other: Soft, overweight, nontender, superior umbilical incision with a focal fibrous firm nontender mass approximately 2 cm in diameter[address] [facility] Cervical Spine: normal cervical lordosis Skin General: no rashes or lesions noted Neuro General: patient alert, patient awake and patient oriented x3 Extrem General: no calf tenderness Psych Appearance: grossly normal Assessment and Plan Assessment and Plan (1) Acid reflux: Status: Acute Qualifiers: Esophagitis presence: with esophagitis Esophagitis bleeding: without hemorrhage Qualified Code(s): K21.00 - Gastro-esophageal reflux disease with esophagitis, without bleeding Comment: CONTROLLED WITH MED Plan I do recommend to the patient a esophagogastroduodenoscopy with very careful inspection of the duodenum and stomach and GE junction as well as midesophagus. The patient's had chronic ongoing symptomatology. She has had some previous abnormal pathology. Likely will anticipate generous sampling at all sources. Perhaps multiple gastric biopsies multiple duodenal biopsies because of the previous pathology will also inspect for eosinophilic esophagitis. He has had an opportunity to ask and have questions answered The small subcutaneous nodule in the umbilical site which patient states is slowly diminishing is unclear in etiology. It is of note that I did repair that fascia with a 0 Nurolon suture and nonabsorbable suture. At this point I simply recommend conservative follow-up. We had an extensive discussion regarding his intermittent left testicular tenderness and the degree of difficulty of his hernia repair. He does appear to be completely solidly intact with both repairs at this time and I am not detecting any significant testicular masses or swelling or particular tenderness today. If the left testicle issue which is improving fails to resolve 1 might consider testicular ultrasound looking for perhaps epididymitis. Again this does not seem to be inhibiting the patient from pursuing bicycle riding or weight lifting. I appreciate the ongoing opportunity of assisting with the surgical care. Copy: Dr. Masha Oviedo M.D., F.A.C.S. I have examined the patient and the H&P has been reviewed. There are no clinical changes since date of exam. Geronimo Oviedo M.D., F.A.C.S.
[2024-01-14 06:22] VITALS: BP 126/67; PULSE 72; RESP 16; TEMP 36.7; O2SAT 96; BMI 34.6
[2024-01-14] MEDS: Lactated Ringers 1,000 ML 15 ML IV (06:28)
--- NOTE | 2024-01-14 07:00 | IMM_PTH ---
PATIENT: GARRET CHIRINOS LOC: EN U#:[id number] AGE/SX: 63/M ROOM: RE01/14/[address]: Dr. Geronimo Oviedo MD : 1960 BED: DIS: 01/14/2024 SPEC #: [id number] RECD: 01/14/24 11:01 STATUS: NISA REMariam #: [id number] YVETTE: 01/14/24 07:[address]: Geronimo Oviedo DEPT: IMMUNOHISTOCHEMISTRY RECD BY: Godfrey Early ENTERED: 01/14/24 11:02 SP TYPE: IMMUNO OTHR DR: Dr. Masha Ortiz DO Tissues: B - Stomach, NOS Procedures: H Pylori (initial) PHYSICIAN & INSTITUTION [place] [id number] SPECIMEN INFORMATION: Tissue Source: B- Antrum nodulary biopsy Clinical Info: Acid reflux Specimen Number: [id number] CPT code: 09046 METHODOLOGY: Deparaffinized sections of prefer/formalin-fixed tissue or PAP/DQ stained slides are incubated with monoclonal/polyclonal antibodies/oligonucleotide probes. Localization is made via biotin free immunoperoxidase method. Appropriate controls are performed and reacted as expected. Results on target cell population are indicated in the following table: RESULTS: ANTIBODY / CLONE RESULT Block B H Pylori (polyclonal) negative These tests were developed and their performance characteristics determined by [facility]. They may not have been cleared or approved by the U.S. Food and Drug Administration. The FDA has determined that such clearance or approval is not necessary. The above immunohistochemical/dualISH markers are ordered and reviewed by the Pathologist. INTERPRETATION: B. Antrum nodulary, biopsy: Negative for Helicobacter pylori organisms.
--- NOTE | 2024-01-14 07:00 | EGD_PTH ---
PATIENT: GARRET CHIRINOS LOC: EN U#:[id number] AGE/SX: 63/M ROOM: RE01/14/[address]: Dr. Geronimo Oviedo MD : 1960 BED: DIS: 01/14/2024 SPEC #: [id number] RECD: 01/14/24 10:02 STATUS: NISA KARLA #: [id number] YVETTE: 01/14/24 07:[address]: Geronimo Oviedo DEPT: SURGICAL PATHOLOGY RECD BY: Alberta Leahy ENTERED: 01/14/24 11:14 SP TYPE: EGD BIOPSY OT DR: Dr. Masha Ortiz DO Tissues: A - Duodenum, NOS B - Gastric mucous membrane C - Esophagus, NOS D - Esophagus, NOS E - Esophagus, NOS F - Esophagus, NOS Procedures: Special Stain Group II Surgery Specimen Level IV Alcian Blue/PAS (control) HEADER OPERATION: EGD biopsy PRE-OP DIAGNOSIS: Acid reflux TISSUE SUBMITTED: A- Duodenum biopsy, B- Antrum nodulary biopsy, C- Lesser curvature biopsy, D- Greater curvature polyp biopsy, E- Distal esophagus biopsy, F-Mid esophagus biopsy MICROSCOPIC DIAGNOSIS A. Duodenum ,biopsy: No pathologic change. B. Gastric antrum, biopsy: Mild chronic gastritis. Non polarizable foreign material consistent with food practical. C. Lesser curvature of stomach, biopsy: Mild chronic gastritis. D. Greater curvature polyp, biopsy: Fundic gland polyp. E. Distal esophagus, biopsy: Gastroesophageal junctional mucosa with chronic inflammation. No evidence of goblet cell metaplasia. See comment. F. Mid esophagus, biopsy: Fragment of benign squamous mucosa. No evidence of inflammation. AM/ 01/15/24 COMMENT B. The results of immunohistochemistry for Helicobacter pylori will be reported separately ([id number]). E. Alcian blue/PAS stain with matched control supports the above diagnosis. MICROSCOPIC DESCRIPTION Slides are reviewed. GROSS DESCRIPTION A. Received in fixative is one container labeled with the patient's name and designated Duodenum biopsy. The specimen consists of one irregular fragment of light stafford soft tissue that measures 0.4 x 0.4 x 0.1 cm. The specimen is totally submitted in one cassette. B. Received in fixative is one container labeled with the patient's name and designated Antrum nodulary biopsy. The specimen consists of multiple irregular fragments of light stafford soft tissue that in aggregate measure 1.0 x 0.5 x 0.1 cm. The specimen is totally submitted in one cassette. C. Received in fixative is one container labeled with the patient's name and designated Lesser curvature biopsy. The specimen consists of one irregular fragment of light stafford soft tissue that measures 0.4 x 0.3 x 0.1 cm. The specimen is totally submitted in one cassette. D. Received in fixative is one container labeled with the patient's name and designated Greater curvature polyp biopsy. The specimen consists of two irregular fragments of light stafford soft tissue that in aggregate measure 0.6 x 0.3 x 0.1 cm. The specimen is totally submitted in one cassette. E. Received in fixative is one container labeled with the patient's name and designated Distal esophagus biopsy. The specimen consists of two irregular fragments of light stafford soft tissue that in aggregate measure 1.0 x 0.5 x 0.1 cm. The specimen is totally submitted in one cassette. F. Received in fixative is one container labeled with the patient's name and designated Mid esophagus biopsy. The specimen consists of one irregular fragment of light stafford soft tissue that measures 0.7 x 0.2 x 0.1 cm. The specimen is totally submitted in one cassette. SJ/mr 01/14/24 TC:3 CPT: 65165,20092b7
[2024-01-14 07:26] VITALS: BP 126/67; BP 144/75; PULSE 81; RESP 14; TEMP 36.6; O2SAT 96
--- NOTE | 2024-01-14 07:29 | OP.CCLET_ITS ---
01/14/2024 Masha Ortiz [address] [facility] [place] [address] Re : Upper GI endoscopy procedure for Facundo Su Dear Dr. Ortiz This procedure was performed on Sunday, January 14, 2024. My impressions and recommendations are as follows: Impressions : - Reflux esophagitis with no bleeding. Biopsied. - Erythematous mucosa in the stomach. - A medium amount of food (residue) in the stomach. - Nodular mucosa in the gastric antrum. Biopsied. - Erythematous mucosa in the lesser curvature. Biopsied. - Multiple gastric polyps. Resected and retrieved. - Erythematous duodenopathy. Biopsied. - Normal mid esophagus. Biopsied. Recommendations : - Discharge patient to home. - Resume previous diet. - Continue present medications. - Telephone my office for pathology results in 1 week. Pending pathology will consider possible gastric emptying study. My findings are described in the full procedure note, which is enclosed. If I can be of further assistance, please feel free to contact me at Doctor phone number(s): Work: . Sincerely, Geronimo Oviedo MD 01/14/2024 7:28:41 AM This report has been signed electronically.
--- NOTE | 2024-01-14 07:29 | OP.EGD_ITS ---
Patient Name: Facundo Su Procedure Date: 01/14/2024 7:03 AM Date of : 1960 Age: 63 Procedure: Upper GI endoscopy Indications: Gastro-esophageal reflux disease Providers: Geronimo Oviedo MD Referring MD: Masha Ortiz Complications: No immediate complications. Procedure: Pre-Anesthesia Assessment: - Prior to the procedure, a History and Physical was performed, and patient medications and allergies were reviewed. The patient's tolerance of previous anesthesia was also reviewed. The risks and benefits of the procedure and the sedation options and risks were discussed with the patient. All questions were answered, and informed consent was obtained. Prior Anticoagulants: The patient has taken no anticoagulant or antiplatelet agents. ASA Grade Assessment: II - A patient with mild systemic disease. After reviewing the risks and benefits, the patient was deemed in satisfactory condition to undergo the procedure. After obtaining informed consent, the endoscope was passed under direct vision. Throughout the procedure, the patient's blood pressure, pulse, and oxygen saturations were monitored continuously. The Endoscope was introduced through the mouth, and advanced to the second part of duodenum. The upper GI endoscopy was performed with moderate difficulty due to presence of food. The patient tolerated the procedure well. Scope In: 7:10:13 AM Scope Out: 7:20:40 AM Total Procedure Duration Time 0 hours 10 minutes 27 seconds Findings: Esophagitis with no bleeding was found 39 cm from the incisors. Biopsies were taken with a cold forceps for histology. Diffuse mildly erythematous mucosa without bleeding was found in the entire examined stomach. A medium amount of food (residue) was found in the cardia, in the gastric fundus and in the gastric body. Localized nodular mucosa was found in the gastric antrum. Biopsies were taken with a cold forceps for histology. Diffuse mildly erythematous mucosa without bleeding was found on the lesser curvature of the stomach. Biopsies were taken with a cold forceps for histology. Multiple sessile polyps with no bleeding and no stigmata of recent bleeding were found in the gastric body. The polyp was removed with a cold biopsy forceps. Resection and retrieval were complete. Diffuse mildly erythematous mucosa without active bleeding and with no stigmata of bleeding was found in the duodenal bulb. Biopsies were taken with a cold forceps for histology. The mid esophagus was normal. Biopsies were taken with a cold forceps for histology. Impression: - Reflux esophagitis with no bleeding. Biopsied. - Erythematous mucosa in the stomach. - A medium amount of food (residue) in the stomach. - Nodular mucosa in the gastric antrum. Biopsied. - Erythematous mucosa in the lesser curvature. Biopsied. - Multiple gastric polyps. Resected and retrieved. - Erythematous duodenopathy. Biopsied. - Normal mid esophagus. Biopsied. Recommendation: - Discharge patient to home. - Resume previous diet. - Continue present medications. - Telephone my office for pathology results in 1 week. Pending pathology will consider possible gastric emptying study. Procedure Code(s): --- Professional --- 36197, Esophagogastroduodenoscopy, flexible, transoral; with biopsy, single or multiple Diagnosis Code(s): --- Professional --- K21.00, Gastro-esophageal reflux disease with esophagitis, without bleeding K31.89, Other diseases of stomach and duodenum K31.7, Polyp of stomach and duodenum CPT copyright 2021 [employer]. All rights reserved. The codes documented in this report are preliminary and upon gas appliance repairer review may be revised to meet current compliance requirements. Geronimo Oviedo MD 01/14/2024 7:28:41 AM This report has been signed electronically. Number of Addenda: 0 Note Initiated On: 01/14/2024 7:03 AM
[2024-01-14 07:30] VITALS: BP 122/77; BP 126/67; PULSE 77; RESP 16; O2SAT 97
[2024-01-14 07:35] VITALS: BP 112/67; BP 126/67; PULSE 78; RESP 18; O2SAT 95
[2024-01-14 07:40] VITALS: BP 123/71; BP 126/67; PULSE 73; RESP 16; TEMP 37; O2SAT 94
[2024-01-14 07:51] VITALS: BP 126/67
== END 2024-01-14 08:08 | disposition home or self-care (01) ==
LOC: EN 05:57 → AC 05:59
PROVIDERS: PCP Family Medicine; Referring Provider Family Medicine; Visit Provider Surgery
PROC: 0DJ08ZZ Inspection of Upper Intestinal Tract, Via Natural or Artificial Opening Endoscopic (ICD-10-PCS; CPT 43235; principal; 2024-01-14 06:55)
DX: K29.50 Unspecified chronic gastritis without bleeding (principal); R19.05 Periumbilic swelling, mass or lump; I10 Essential (primary) hypertension; K31.7 Polyp of stomach and duodenum; N50.89 Other specified disorders of the male genital organs; E78.5 Hyperlipidemia, unspecified; Z87.891 Personal history of nicotine dependence; Z79.899 Other long term (current) drug therapy; Z79.890 Hormone replacement therapy; E66.9 Obesity, unspecified; K21.00 Gastro-esophageal reflux disease with esophagitis, without bleeding; Z87.19 Personal history of other diseases of the digestive system; E07.9 Disorder of thyroid, unspecified
CPT/HCPCS: 43239; 88305; 88313; 88342; J7120; J2405

== ENCOUNTER → 2024-02-04 | Outpatient (CLI) | payer OTHER, SELFPAY ==
--- NOTE | 2024-02-04 10:15 | NM_ITS ---
CLINICAL: 63-year-old male with history of abdominal pain. SEMI-SOLID PHASE 99m Tc SULFUR COLLOID GASTRIC EMPTYING STUDY COMPARISON: None available FINDINGS: The patient was administered 1.2 mCi of 99m Tc sulfur colloid mixed with oatmeal and consumed per os. Image acquisitions in the anterior-posterior projections were obtained for 60 minutes. There is prompt visualization of the stomach. There is no gastroesophageal reflux identified. The T ? linear fit was calculated to be 44.1 minutes, (Normal: 12-56 minutes). NM/Gastric Emptying Study IMPRESSION: 1. NORMAL 99m Tc sulfur colloid semi-solid phase (oatmeal) gastric emptying imaging examination. A. There is normal and preserved semi-solid phase gastric emptying compared to normal controls. (Darling et al, J Nucl Med Tech 38: 186, 2010). Electronically Signed: Eulogio Alejandre DO at 23:45 EDT ,
== END | disposition home or self-care (01) ==
LOC: NM 10:14
PROVIDERS: PCP Family Medicine; Referring Provider Surgery; Visit Provider Surgery
DX: R10.9 Unspecified abdominal pain (principal)
CPT/HCPCS: 78264; A9541

== ENCOUNTER → 2024-02-21 | Outpatient (CLI) | payer OTHER, SELFPAY ==
[2024-02-21 12:49] LABS: Absolute Lymphocyte Count 1.84 X10^3/uL (0.83-4.51); Basophil# 0.03 X10^3/uL; Basophil% 0.4 % (0-1); Eosinophil# 0.07 X10^3/uL; Eosinophils% 0.9 % (0-5); Hematocrit 54.9 % (40-54); Hemoglobin 17.7 g/dL (13.0-16.5); Lymphocyte # 1.84 X10^3/ul (0.83-4.51); Lymphocyte % 24.7 % (19-41); Mean Corp Hgb Conc 32.2 g/dL (32-36); Mean Corpuscular Hgb 27.5 pg (27.0-32.0); Mean Corpuscular Volume 85.4 fL (80-94); Mean Platelet Vol. 8.5 fl (6.2-12.0); Monocyte# 0.48 X10^3/uL; Monocyte% 6.5 % (0-10); NRBC Flagged by Analyzer 0 % (0-5); Neutrophil % 67.2 % (47-70); Platelet Count 209 K/mm3 (150-450); RBC Distribution Width CV 13.5 % (11.6-14.6); RBC Distribution Width SD 42.2 fl (35.1-43.9); Red Blood Count 6.43 M/mm3 (4.6-6.2); White Blood Count 7.4 K/mm3 (4.4-11.0)
[2024-02-21 14:01] LABS: ALB/GLOB Ratio 1.1 RATIO (0.9-2.4); AST(SGOT) 23 U/L (15-37); Alanine Aminotransfer ALT/SGPT 24 U/L (16-61); Alkaline Phosphatase 45 U/L (45-117); Anion Gap 8 (5-15); BUN 18 mg/dL (7-18); BUN/Creat Ratio 15.3 RATIO (10-20); Calcium,Total 9.6 mg/dL (8.5-10.1); Chloride 102 mmol/L (98-107); Cholesterol 148 mg/dL (200); Creatinine, Serum 1.18 mg/dL (0.70-1.30); EST Glomerular Filtration Rate 66 mL/min (>60); Est Glom Filt Rate - Afr Amer 80 mL/min (>60); Free T3 2.6 pg/mL (2.18-3.98); Globulin 3.6 g/dL (2.2-4.2); Glucose 75 mg/dL (74-106); High Density Lipoprotein 43 mg/dL; PSA,Total - Annual Screen 1.19 ng/mL (0.00-4.00); Potassium 4.4 mmol/L (3.5-5.1); Protein, Total 7.6 g/dL (6.4-8.2); Sodium Level 137 mmol/L (136-145); T4 Free Direct 1.06 ng/dL (0.76-1.46); Thyroid Stim Hormone (TSH) 3.64 uIU/mL (0.358-3.74); Triglycerides 82 mg/dL; Very Low Density Lipoprotein 16 mg/dL (5-40)
[2024-02-27 13:08] LABS: Testosterone, % Free 3.88 % (1.50-4.20); Testosterone, Free 31.82 ng/dL (5.00-21.00); Testosterone, Total 820 ng/dL (264-916)
== END | disposition home or self-care (01) ==
LOC: BFHLAB 09:00
PROVIDERS: PCP Family Medicine; Referring Provider Family Medicine; Visit Provider Family Medicine
DX: Z12.5 Encounter for screening for malignant neoplasm of prostate (principal); E03.9 Hypothyroidism, unspecified; I10 Essential (primary) hypertension; E29.1 Testicular hypofunction
CPT/HCPCS: 36415; 80053; 80061; 84153; 84402; 84403; 84439; 84443; 84481; 85025; G0103

== ENCOUNTER → 2024-04-03 | Outpatient (CLI) | payer OTHER, SELFPAY ==
--- NOTE | 2024-04-03 17:47 | CT_ITS ---
EXAM: CT CHEST, ABDOMEN AND PELVIS WITH INTRAVENOUS CONTRAST CLINICAL INDICATION: R/O MALIGNANCY/POLYCYTHEMIA TECHNIQUE: Helically acquired images were obtained of the chest, abdomen and pelvis with intravenous contrast. This CT exam was performed using one or more of the following dose reduction techniques: automated exposure control, adjustment of the mA and/or kV according to patient size, and/or use of iterative reconstruction technique. CONTRAST: IV 100mL [id number] COMPARISON: CT abdomen pelvis dated 12/14/2021 FINDINGS: CHEST: LUNGS AND PLEURAL SPACES: Unremarkable. No mass. No consolidation or edema. No pleural effusion or thickening. No pneumothorax. HEART: Unremarkable. Heart size is normal. No pericardial effusion. MEDIASTINUM: Unremarkable. No mediastinal or hilar adenopathy. Esophagus is unremarkable. No hiatal hernia. THYROID: Unremarkable. No thyroid lesions. ABDOMEN: LIVER: Unremarkable. Homogeneous. No focal mass. GALLBLADDER AND BILE DUCTS: There are surgical clips from a cholecystectomy. No intra- or extrahepatic biliary ductal dilation. PANCREAS: Unremarkable. No focal cystic or solid mass. SPLEEN: Unremarkable. Normal size without focal cystic or solid mass. ADRENALS: Unremarkable. No nodules. KIDNEYS AND URETERS: There are low-density masses in both kidneys compatible with simple cysts which are stable. No follow-up imaging is necessary. No hydronephrosis. STOMACH AND BOWEL: Unremarkable. No stomach or bowel distention. No focal inflammatory change. PELVIS: APPENDIX: No evidence of acute appendicitis. BLADDER: Unremarkable. REPRODUCTIVE: Unremarkable as visualized. No mass. CHEST, ABDOMEN and PELVIS: INTRAPERITONEAL SPACE: Unremarkable. No ascites or other fluid collection. No free air. BONES/JOINTS: Unremarkable. No suspicious lytic or blastic abnormality. SOFT TISSUES: Unremarkable. No discrete abdominal or pelvic wall hernia. VASCULATURE: Unremarkable. Aorta is non-dilated. No aortic dissection. No obvious central pulmonary embolism although this study was not performed with the pulmonary embolism protocol. LYMPH NODES: Unremarkable. No enlarged lymph nodes. CT/CT Chest, Abd, Pel w/Contrast IMPRESSION: No acute findings in the chest, abdomen or pelvis. Electronically Signed: Joby Smith MD at 16:37 EDT ,
== END | disposition home or self-care (01) ==
LOC: CT 17:45
PROVIDERS: PCP Family Medicine; Referring Provider Internal Medicine Medical Oncology; Visit Provider Internal Medicine Medical Oncology
DX: E29.1 Testicular hypofunction (principal); D75.1 Secondary polycythemia
CPT/HCPCS: 71260; 74177; Q9967

== ENCOUNTER → 2024-05-13 | Outpatient (CLI) | payer OTHER, SELFPAY ==
[2024-05-13 18:13] LABS: Thyroid Stim Hormone (TSH) 2.13 uIU/mL (0.358-3.74)
[2024-05-19 15:09] LABS: Testosterone, Total 227 ng/dL (264-916)
== END | disposition home or self-care (01) ==
LOC: BFHLAB 13:26
PROVIDERS: PCP Family Medicine; Visit Provider Family Medicine
DX: E29.1 Testicular hypofunction (principal)
CPT/HCPCS: 36415; 84402; 84403; 84443

== ENCOUNTER → 2024-06-01 | Outpatient (CLI) | payer OTHER, SELFPAY ==
[2024-06-01 12:37] LABS: Absolute Lymphocyte Count 1.39 X10^3/uL (0.83-4.51); Basophil# 0.03 X10^3/uL; Basophil% 0.5 % (0-1); Eosinophil# 0.04 X10^3/uL; Eosinophils% 0.7 % (0-5); Hematocrit 47.4 % (40-54); Hemoglobin 15.6 g/dL (13.0-16.5); Lymphocyte # 1.39 X10^3/ul (0.83-4.51); Lymphocyte % 23.5 % (19-41); Mean Corp Hgb Conc 32.9 g/dL (32-36); Mean Corpuscular Hgb 27.7 pg (27.0-32.0); Mean Platelet Vol. 8.5 fl (6.2-12.0); Monocyte# 0.46 X10^3/uL; Monocyte% 7.8 % (0-10); NRBC Flagged by Analyzer 0 % (0-5); Neutrophil # 3.96 X10^3/uL (2.7-7.7); Platelet Count 184 K/mm3 (150-450); RBC Distribution Width CV 13.3 % (11.6-14.6); Red Blood Count 5.64 M/mm3 (4.6-6.2); White Blood Count 5.9 K/mm3 (4.4-11.0)
[2024-06-01 13:16] LABS: CRP 9.34 mg/L (0.0-3.0)
== END | disposition home or self-care (01) ==
LOC: MTLAB 10:20
PROVIDERS: PCP Family Medicine; Referring Provider Family Medicine; Visit Provider Family Medicine
DX: M25.50 Pain in unspecified joint (principal); D75.1 Secondary polycythemia
CPT/HCPCS: 36415; 85025; 86140

== ENCOUNTER → 2024-08-03 | Outpatient (CLI) | payer OTHER, SELFPAY ==
--- OUTSIDE RECORDS SUMMARY | 2024-08-03 14:15 | XMS RPT_ITS | CCD ---
Author Organization [facility] Care Team Providers Care Aviation Consultant Name Role Phone Jairon HOSE CEMENTER, Charisma N Unavailable Unavailab le Jairon HOSE CEMENTER, Charisma N Unavailable Unavailab le Jairon HOSE CEMENTER, Charisma N Unavailable Unavailab Masha South DO Primary Care Provider [phone] Allergies Allergy Classification Reported Allergen(s) Allergy Type Date of Onset Reaction(s) Facility (3 sources) natural latex rubber; Translations: [LATEX] allergy to substance 11-05-2010 [facility] Work Phone: (3 sources) Latex Drug Allergy 11-05-2010 Rash [facility] Medications Completed/Discontinued Medications Medication Drug Class(es) Dates Sig (Normalized) Sig (Original) 200 actuat albuterol 0.09 mg/actuat metered dose inhaler (3 sources) beta2-Adrenergic Agonist Start: 11-05-2010 End: 11-12-2010 PROAIR HFA 108 (90 Base) MCG/ACT AERS 2 puffs every 4 hours as needed for wheezes ALBUTEROL SULFATE [id number] Robyn TIERNEY Start: 11-05-2010 End: 11-12-2010 PROAIR HFA 108 (90 Base) MCG /ACT AERS 2 puffs every 4 hours as needed for wheezes ALBUTEROL SULFATE [id number] Robyn TIERNEY amoxicillin 500 mg oral capsule (3 sources) Penicillin-class Antibacterial Start: 11-05-2010 End: 11-15-2010 take 1 capsule by mouth three times daily AMOXICILLIN 500 MG CAPS Take 1 capsule by mouth three times a day X 10 days AMOXICILLIN [id number] Robyn TIERNEY amoxicillin 875 mg / clavulanate 125 mg oral tablet (3 sources) Penicillin-class Antibacterial Start: 11-25-2010 End: 12-05-2010 take 1 tablet by mouth every twelve hours at mealtime AUGMENTIN 875-125 MG TABS 1 tab po every 12 hours with food for 10 days AMOXICILLIN-POT CLAVULANATE [id number] Lisset Parker PA-C Start: 11-25-2010 End: 12-05-2010 take 1 tablet by mouth every twelve hours at mealtime AUGMENTIN 875-125 MG TABS 1 tab po every 12 hours with food for 10 days AMOXICILLIN-POT CLAVULANATE [id number] Lisset Parker PA-C Aspirin (3 sources) Platelet Aggregation Inhibitor, Nonsteroidal Anti-inflammatory Drug aspirin (ASPIR-81 ORAL) Take by mouth. 0 Active Comment on above: Take by mouth. atenolol (4 sources) beta-Adrenergic Axel Start: 2017 ATENOLOL TABS as directed ATENOLOL TABS [id number] Charisma De La O LPN End: 02-27-2022 take 1 tablet by mouth once daily atenolol (TENORMIN) 25 mg tablet Take 25 mg by mouth once daily. 0 02/27/2022 Discontinued Comment on above: Take 25 mg by mouth once daily. bisacodyl 5 mg delayed release oral tablet (3 sources) Stimulant Laxative Start: 02-27-2022 Bisacodyl (DULCOLAX) 5 mg tab Use as directed for Miralax / Gatorade Bowel Prep Kit 4 tablet 0 02/27/2022 Active Comment on above: Use as directed for Miralax / Gatorade Bowel Prep Kit cholecalciferol 1.25 mg oral capsule (3 sources) Vitamin D Start: 02-23-2022 cholecalciferol, Vitamin D3, (VITAMIN D3) 1,250 mcg (50,000 unit) cap capsule CHOLESTEROL MEDICATION-NAME UNKNOWN (6 sources) Start: 11-05-2010 Start: 11-05-2010 End: 2017 cholestyramine resin 4000 mg powder for oral suspension (4 sources) Bile Acid Sequestrant Start: 06-30-2018 End: 02-27-2022 QUESTRAN 4 gram packet Comment on above: Take 4 g by mouth on ce daily. dicyclomine hydrochloride 10 mg oral capsule (1 source) Anticholinergic Start: 07-02-2017 End: 02-27-2022 dicyclomine (BENTYL) 10 mg capsule ergocalciferol 1.25 mg oral capsule (1 source) Provitamin D2 Compound Start: 01-24-2018 End: 02-27-2022 ergocalciferol, vitamin D2, (DRISDOL) 50,000 unit capsule esomeprazole 40 mg delayed release oral capsule (3 sources) Proton Pump Inhibitor Start: 11-05-2010 take 1 tablet by mouth once daily NEXIUM 40 MG CPDR 1 tab by mouth daily ESOMEPRAZOLE MAGNESIUM [id number] Robyn TIERNEY Start: 11-05-2010 take 1 tablet by chana th once daily NEXIUM 40 MG CPDR 1 tab by mouth daily ESOMEPRAZOLE MAGNESIUM [id number] Robyn TIERNEY CHOLINE FENOFIBRATE CPDR (6 sources) Peroxisome Proliferator Receptor alpha Agonist Start: 2017 TRILIPIX CPDR as directed CHOLINE FENOFIBRATE CPDR [id number] Charisma De La O LPN take 135 mg by mouth once daily Fenofibric Acid (TRILIPIX) 135 mg cpDR Take 135 mg by mouth once daily. 0 Active Comment on above: Take 135 mg by mouth once daily. fluticasone propionate 0.05 mg/actuat metered dose nasal spray (1 source) Corticosteroid Start: 06-30-2018 End: 02-27-2022 fluticasone (FLONASE) 50 mcg/actuation nasal spray Gatorade Sports Drink (3 sources) Start: 02-27-2022 Gatorade Sports Drink Use as directed for Miralax / Gatorade Bowel Prep Kit 0 02/27/2022 Active Comment on above: Use as directed for Miralax / Gatorade Bowel Prep Kit levoFLOXacin 500 mg oral tablet (4 sources) Quinolone Antimicrobial Start: 07-17-2017 End: 02-27-2022 levoFLOXacin (LEVAQUIN) 500 mg tablet Start: 2017 LEVAQUIN 500 M G TABS 1 tablet daily LEVOFLOXACIN [id number] Rey TIERNEY liraglutide (1 source) GLP-1 Receptor Agonist End: 02-27-2022 LIRAGLUTIDE (VICTOZA 2-SHANTA SUBCUTANEOUS) Inject subcutaneously. 0 02/27/2022 Discontinued Comment on above: Inject subcutaneousl y. lisinopril 20 mg oral tablet (6 sources) Angiotensin Converting Enzyme Inhibitor Start: 11-05-2010 take 1 tablet by mouth once daily LISINOPRIL 20 MG TABS 1 tab by mouth daily LISINOPRIL [id number] Robyn TIERNEY take 1 tablet by mouth once meenu y lisinopril (ZESTRIL, PRINIVIL) 40 mg tablet Take 40 mg by mouth once daily. 0 Active Comment on above: Take 40 mg by mouth once daily. metroNIDAZOLE 500 mg oral tablet (4 sources) Nitroimidazole Antimicrobial Start: 07-17-2017 End: 02-27-2022 metroNIDAZOLE (FLAGYL) 500 mg tablet Start: 2017 FLAGYL 500 MG TABS 1 tablet 3 times a day METRONIDAZOLE [id number] Rey TIERNEY OTC PRODUCT (1 source) End: 02-27-2022 OTC PRODUCT 1.25 Units twice a week. 0 02/27/2022 Discontinued Comment on above: 1.25 Units twice a w [place]. pantoprazole 40 mg delayed release oral tablet (3 sources) Proton Pump Inhibitor Start: 09-03-2018 take 1 tablet by mouth once daily pantoprazole DR (PROTONIX) 40 mg tablet Indications: Gastroesophageal reflux disease without esophagitis , Regurgitation of food Take 1 tablet by mouth once daily. 30 tablet 5 09/03/2018 Active Comment on above: Take 1 tablet by chana once daily. polyethylene glycol 3350 27730 mg powder for oral solution (3 sources) Osmotic Laxative Start: 02-27-2022 polyethylene glycol 3350 (MIRALAX, GLYCOLAX) 17 gram/dose powder Use as directed for Miralax / Gatorade Bowel Prep Kit 238 g 0 02/27/2022 Active Comment on above: Use as directed for Miralax / Gatorade Bowel Prep Kit 1 ml testosterone cypionate 200 mg/ml injection (6 sources) Androgen Start: 02-22-2022 testosterone cypionate (DEPO-TESTOSTERONE) 200 mg/mL injection Start: 01-30-2022 testosterone c ypionate (DEPO-TESTOSTERONE) 100 mg/mL injection triamcinolone acetonide 0.055 mg/actuat metered dose nasal spray (3 sources) Corticosteroid Start: 11-25-2010 End: 12-02-2010 take 2 spray(s) nasal route once daily NASACORT AQ 55 MCG/ACT AERS 2 sprays each nostril daily for 7 days TRIAMCINOLONE ACETONIDE(NASAL) [id number] Lisset Parker PA-C Start: 11-25-2010 End: 12-02-2010 take 2 spray(s) nasal route once daily NASACORT AQ 55 MCG/ACT AERS 2 sprays each nostril daily for 7 days TRIAMCINOLONE ACETONIDE(NASAL) [id number] Lisset Parker PA-C Problems Active Problems Problem Classification Problem Date Documented Date Episodic/Chronic Diverticulosis and diverticulitis (5 sources) Diverticulitis; Translations: [Diverticulitis of intestine, part unspecified, without perforation or abscess without bleeding] Onset: 2017 2017 Chronic Joint disorders and dislocations; trauma-related (3 sources) Chondromalacia of patella; Translations: [Chondromalacia patellae, unspecified knee] Onset: 10-12-2014 10-26-2014 Chronic Osteoarthritis (6 sources) Osteoarthritis of knee; Translations: [Bilateral primary osteoarthritis of knee] Onset: 10-12-2014 09-21-2016 Chronic Spondylosis; intervertebral disc disorders; other back problems (3 sources) Inflammation of sacroiliac joint; Translations: [Sacroiliitis, not elsewhere classified] Onset: 12-03-2014 12-10-2014 Chronic Past or Other Problems Problem Classification Problem Date Documented Da te Episodic/Chronic Other connective tissue disease (5 sources) Medial epicondylitis; Translations: [Cramp] Onset: 10-12-2014 10-26-2014 Episodic Other connective tissue disease (1 source) Cramp; Translations: [Other muscle spasm] Onset: 12-03-2014 12-10-2014 Episodic Other lower respiratory disease (3 sources) Wheezing; Translations: [Wheezing] Onset: 11-05-2010 11-05-2010 Episodic Other non-traumatic joint disorders (8 sources) Knee pain; Translations: [Pain in elbow] Onset: 10-12-2014 11-07-2014 Episodic Other non-traumatic joint disorders (1 source) Pain in elbow; Translations: [Pain in left elbow] Onset: 10-12-2014 10-12-2014 Episodic Other upper respiratory infections (6 sources) Acute sinusitis; Translations: [Sinusitis] Onset: 11-05-2010 11-05-2010 Episodic Spondylosis; intervertebral disc disorders; other back problems (3 sources) Low back pain; Translations: [Low back pain] Onset: 11-26-2014 11-26-2014 Episodic Results Test Name Value Interpretation Reference Range Facility [facility] 04-02-2022 CNPN Telephone (GSTNOR) GARRET SU ([id number]) 1960 M Date Time Provider Department 04/02/22 ANG MARJAN GSTNOR During your visit today, we recorded the following information about you: Alexia Marsh MA 04/02/2022 10:16 AM Signed LVTCB for colonoscopy results Allergies As of Date: 04/02/2022 Noted Allergy Reaction LATEX 11/05/2010 2 - Rash Date Reviewed: 03/27/2022 Reviewed by: Veronica Oh RN - Fully Assessed Reason for Visit: Results [95] Prescriptions as of 04/02/2022 - cholecalciferol, Vitamin D3, (VITAMIN D3) 1,250 mcg (50,000 unit) cap capsule - testosterone cypionate (DEPO-TESTOSTERONE) 200 mg/mL injection - testosterone cypionate (DEPO-TESTOSTERONE) 100 mg/mL injection - polyethylene glycol 3350 (MIRALAX, GLYCOLAX) 17 gram/dose powder Use as directed for Miralax / Gatorade Bowel Prep Kit - Gatorade Sports Drink Use as directed for Miralax / Gatorade Bowel Prep Kit - Bisacodyl (DULCOLAX) 5 mg tab Use as directed for Miralax / Gatorade Bowel Prep Kit - pantoprazole DR (PROTONIX) 40 mg tablet Take 1 tablet by mouth once daily. - aspirin (ASPIR-81 ORAL) Take by mouth. - Fenofibric Acid (TRILIPIX) 135 mg cpDR Take 135 mg by mouth once daily. - cholestyramine-sucro se (QUESTRAN) 4 gram powder Take 4 g by mouth once daily. - lisinopril (ZESTRIL, PRINIVIL) 40 mg tablet Take 40 mg by mouth once daily. Problem List As Of Date: 04/02/2022 (None) Encounter Status:Closed by ALEXIA MARSH on 04/02/22 Normal [facility] ANES POSTPROC EVALon 022 ANES POSTPROC EVAL HNO ID: [id number] Author: Sarah Beth Rocha APRN.SULLY Service: ? Author Type: Nurse Die Attaching Machine Tender Type: Anesthesia Postprocedure Evaluation Filed: 03/27/2022 12:37 PM Note Text: POST ANESTHESIA EVALUATION NOTE : 1960 Procedure Summary Date: 03/27/22 Room / Location: Ambulatory Surgery Anesthesia Start: 1205 Anesthesia Stop: 1236 Procedure: COLONOSCOPY DIAGNOSTIC Diagnosis: Diverticulitis (Abdominal pain in the left lower quadrant) Scheduled Providers: Antwon Chance MD Responsible Provider: Sarah Beth Rocha APRN.SALES OPERATIONS ANALYST Anesthesia Type: MAC ASA Status: 2 Anesthesia Type: MAC Last Vitals Vitals Value Taken Time BP 127/63 03/27/22 1232 Temp 37.1 ?C (98.7 ?F) 03/27/22 1232 Pulse 68 03/27/22 1232 Resp 16 03/27/22 1232 SpO2 97 % 03/27/22 1232 Post Anesthesia Patient Status Patient Evaluation: PACU. PACU/ICU Patient Condition: stable. Anticipated Disposition: phase 2 then home. Neurological Status: aware and responsive. Pulmonary Status: breathing comfortably on room air Airway Control: returned to baseline unsupported. Cardiovascular Status: stable. Pain Management: clinically adequate - multimodal analgesia pain management approach Postoperative Hydration: acceptable. Intraoperative Events: no significant anesthesia events Post Operative Nausea/Vomiting Status: no significant post operative nausea or vomiting Anesthetic Observations: Recommendation: continue current plan of care. Anesthesia Observations No Documentation SIGNATURE: Sarah Beth Rocha APRN.SALES OPERATIONS ANALYST PATIENT NAME: Garret Su DATE: March 27, 2022 TIME: 12:36 PM CSN: [id number] Normal [facility] ANES PRE-OPon 03-27-2022 ANES PRE-OP HNO ID: [id number] Author: Sarah Beth Rocha APRN.SULLY Service: ? Author Type: Nurse Die Attaching Machine Tender Type: Anesthesia Preprocedure Evaluation Filed: 03/27/2022 12:01 PM Note Text: ANESTHESIOLOGY DAY OF SURGERY NOTE : 1960 Procedure Information Date/Time: 03/27/22 1130 Scheduled providers: Antwon Chance MD Procedure: COLONOSCOPY DIAGNOSTIC Location: Ambulatory Surgery Estimated body mass index is 33.5 kg/m? as calculated from the following: Height as of this encounter: 182.9 cm (6'). Weight as of this encounter: 112 kg (247 lb). Most recent hematocrit and potassium results: No results found for this basename: HCT,HEMATOCRIT,K,POT ASSIUM Relevant Problems No relevant active problems I - PHYSICAL EVALUATION AIRWAY Patient intubated: No. Tracheostomy tube not present Mallampati: II. TM distance: >3 FB. Neck ROM: full ROM without neurological symptoms. Mouth opening: adequate. Short neck: yes. Thick neck: yes DENTAL Dental findings: teeth intact. Additional exam findings: no II - ANESTHESIA PLAN ASA Score: 2 Anesthetic Plan: MAC The patient is not a current smoker. NPO Status: adequate Monitoring plan: standard ASA. Postoperative analgesic plan: parenteral or oral opioids and multimodal analgesia. Informed Consent Anesthetic risks, benefits, alternatives, personnel and consent discussed: yes. Patient / Responsible Green Party agrees to proceed: yes Patient / Surrogate agrees to blood products: blood products not planned Significant changes in the patient condition since the History and Physical, not otherwise documented in primary service progress note: no. Vitals Value Taken Time BP 132/68 03/27/22 1107 Pulse 65 03/27/22 1107 Resp 19 03/27/22 1107 Temp 36.8 ?C (98.3 ?F) 03/27/22 1107 SpO2 98 % 03/27/22 1107 Outpatient Medications as of 03/27/2022 Medication Sig - cholecalciferol, Vitamin D3, (VITAMIN D3) 1,250 mcg (50,000 unit) cap capsule - testosterone cypionate (DEPO-TESTOSTERONE) 200 mg/mL injection - testosterone cypionate (DEPO-TESTOSTERONE) 100 mg/mL injection - polyethylene glycol 3350 (MIRALAX, GLYCOLAX) 17 gram/dose powder Use as directed for Miralax / Gatorade Bowel Prep Kit - Gatorade Sports Drink Use as directed for Miralax / Gatorade Bowel Prep Kit - Bisacodyl (DULCOLAX) 5 mg tab Use as directed for Miralax / Gatorade Bowel Prep Kit - pantoprazole DR (PROTONIX) 40 mg tablet Take 1 tablet by mouth once daily. - aspirin (ASPIR-81 ORAL) Take by mouth. - Fenofibric Acid (TRILIPIX) 135 mg cpDR Take 135 mg by mouth once daily. - cholestyramine-sucro se (QUESTRAN) 4 gram powder Take 4 g by mouth once daily. - lisinopril (ZESTRIL, PRINIVIL) 40 mg tablet Take 40 mg by mouth once daily. No current facility-administere d medications on file as of 03/27/2022. I have interviewed and examined the patient. I have reviewed the medical record and/or the pre-anesthesia evaluation, pertinent labs, and test results. This contains updated information obtained within 48 hours of Surgery/Procedure. SIGNATURE: Sarah Beth Rocha APRN.CRNA PATIENT NAME: Garret Su DATE: March 27, 2022 TIME: 12:01 PM CSN: [id number] Normal [facility] COLONOSCOPY DIAGNOSTICon [facility] HISTORY PHYSICALon 2 HISTORY PHYSICAL HNO ID: [id number] Author: Antwon Chance MD Service: Gastroenterology Author Type: Physician Type: HANDP Filed: 03/27/2022 11:59 AM Note Text: HISTORY AND PHYSICAL Garret Su, 61 year old male here for colonoscopy, to evaluate history of diverticulitis Current history and physical on file: Yes Is a new History and Physical required for today's visit? No Indication for procedure: Diverticulitis PROCEDURE(S) SCHEDULED FOR: Colonoscopy with or without biopsies and with or without removal of polyps or lesions, dilation (any means), treatment of bleeding (any means), based on clinical findings. BASELINE BEHAVIOR: Calm BASELINE ORIENTATION: A AND O x3 All medications and allergies reviewed: Yes Skin Assessment: Warm dry muscus membranes pink Airway/Respiratory Assessment: Airway: visualization of the uvula- Yes Mouth: opening greater than 2 fingerbreadths- Yes Neck: full range of motion- Yes Breath sounds clear/equal- Yes Cardiac Assessment: Regular rate and rhythm without murmur Abdominal Assessment: Abdomen soft, non-tender, no masses or organomegaly. Sedation Plan: Deep Additional Comments: None Antwon Chance MD Normal [facility] NURSING PROGon 03-27-2022 NURSING PROG HNO ID: [id number] Author: Veronica Oh RN Service: ? Author Type: Registered Nurse Type: Nursing Progress Note Filed: 03/27/2022 12:49 PM Note Text: Discharge instructions given and patient voices understanding. All questions answered. Veronica Oh RN Normal [facility] SURGICAL PATHOLOGYon 022 CASE REPORT Normal [facility] Comment on above: Order Comment: Davi zelaya Type: TISSUE SPECIMEN Ordering Facility: [facility] Address: [address] [place] [address] Result Comment: Surg ical Pathology Report Case: [id number] Authorizing Provider: Antwon Chance MD Collected: 03/27/2022 12:18 PM Ordering Location: Ambulatory Surgery Received: 03/27/2022 07:30 PM Pathologist: Aparna Fish MD Specimen: TRANSVERSE COLON POLYP, distal Performed By: #### S #### [facility] CLIA [id number] [address] [place] [address] DIAGNOSIS COMMENT Additional histologic levels have been performed on part A. Normal [facility] Comment on above: Order Comment: Davi zelaya Type: TISSUE SPECIMEN Ordering Facility: [facility] Address: [address] [place], [place] [id number] Performed By: #### S #### [facility] CLIA [id number] [address] [place] [address] FINAL DIAGNOSIS Normal [facility] Comment on above: Order Comment: Davi zelaya Type: TISSUE SPECIMEN Ordering Facility: [facility] Address: [address] [place] [address] Result Comment: [place] n, distal transverse, polypectomy: - Post- inflammatory type polyp - Negative for dysplasia. AEB/kr 03/29/2022 Performed By: #### S #### [facility] CLIA [id number] [address] [place] [address] OF [facility] FINAL PERFORMING LAB Normal [facility] Comment on above: Order Comment: Speci men Type: TISSUE SPECIMEN Ordering Facility: [facility] Address: [address] [place] [address] Result Comment: Diag nostic interpretation performed at [facility], [address] [place] [address] CLIA# [id number] Chef: Torres De La Paz M.D. Performed By: #### S #### [facility] CLIA [id number] [address] [place] [address] GROSS DESCRIPTION Normal [facility] Comment on above: Order Comment: Speci men Type: TISSUE SPECIMEN Ordering Facility: [facility] Address: [address] [place] [address] Result Comment: A. T RANSVERSE COLON POLYP. Received in formalin is one piece of stafford, soft tissue measuring 0.3 x 0.2 x 0.2 cm. Totally submitted in one cassette. Gross examination performed at [facility], [address] [place] [address] MDM 03/27/2022 11:39 PM Performed By: #### S #### [facility] CLIA [id number] [address] [place] [address] OF [facility] CNCOon 02-27-2022 CNCO Letter Text Normal [facility] CNOVon 02-27-2022 CNOV Office Visit (GSTNOR) GARRET SU ([id number]) 1960 M Date Time Provider Department 02/27/22 9:30 AM MARJAN FRY During your visit today, we recorded the following information about you: Pulse Blood pressure Weight Height 58/minute 142/78 112 kg 1.829 m Marjan Fry PA-C 02/27/2022 10:01 AM Signed CHIEF COMPLAINT: Patient presents with: Hx of Diverticulitis: Wants to discuss here before seeing a surgeon-CT in [place] This consult was requested by Self for an opinion regarding diverticulitis. My final recommendations will be communicated to the requesting health care provider by way of the shared medical record for internal providers or letter via the [employer] for external providers. HPI: Garret Su is a 61 year old male who presents for Hx of Diverticulitis (Wants to discuss here before seeing a surgeon-CT in [place] ). PMHx of anemia, diverticulitis, gastric polyps, GERD, HLD, HTN, IBS, obesity Patient had an attack of Diverticulitis in August, November and December of this year. Tells me that the December attack was the worst is has ever been. Tells me that he feeling well today. Denies change in bowel habits, blood in the stool, abdominal pain. Appetite is good. Weight is fluctuating. CT abd/pelvis 12/14/2021: FINDINGS: The visualized lung bases are unremarkable. Coronary artery calcification. There is decreased attenuation of the liver consistent with steatosis. There are surgical clips in the gallbladder fossa consistent with a prior cholecystectomy. Normal spleen. Normal pancreas. Normal bilateral adrenal glands. There is a 3.5 cm x 2.8 cm cyst in the upper lateral aspect of the left kidney. There is a 1.2 cm cyst in the upper medial aspect of the left kidney. Stable 1.6 cm cyst in the anterior midportion of the kidney as well as the posterior lower pole of the Normal visualized stomach. Normal small intestine. There is diverticulosis, with thickening of the colon wall, and pericolonic inflammation changes consistent with acute diverticulitis. The appendix is visualized and appears normal. There is diffuse atherosclerotic calcification of the abdominal aorta, without a demonstrated aneurysm. Normal inferior vena cava. Normal retroperitoneum. Normal urinary bladder. There is a left-sided inguinal hernia containing adipose tissue. There are mild degenerative changes of the visualized lumbar spine. Colonoscopy 2014: Record Review: [facility] / Outside records reviewed. PAST MEDICAL HISTORY Diagnosis Date - Anemia - Diverticulosis - Environmental allergies - Gastric polyps - GERD (gastroesophageal reflux disease) - Hyperlipidemia - Hypertension - Irritable bowel - Obesity PAST SURGICAL HISTORY Procedure Laterality Date - CHOLECYSTECTOMY - COLONOSCOPY 09/07/2015 - EGD 07/29/2012 - EGD 07/07/2018 Multiple gastric polyps, bile gastritis - TONSILLECTOMY AND ADENOIDECTOMY Allergies: ALLERGIES Allergen Reactions - Latex Rash Medications: cholecalciferol, Vitamin D3, (VITAMIN D3) 1,250 mcg (50,000 unit) cap capsule testosterone cypionate (DEPO-TESTOSTERONE) 200 mg/mL injection testosterone cypionate (DEPO-TESTOSTERONE) 100 mg/mL injection pantoprazole DR (PROTONIX) 40 mg tablet Take 1 tablet by mouth once daily. aspirin (ASPIR-81 ORAL) Take by mouth. Fenofibric Acid (TRILIPIX) 135 mg cpDR Take 135 mg by mouth once daily. cholestyramine-sucro se (QUESTRAN) 4 gram powder Take 4 g by mouth once daily. lisinopril (ZESTRIL, PRINIVIL) 40 mg tablet Take 40 mg by mouth once daily. FAMILY HISTORY Problem Relation Age of Onset - Cancer Mother Breast, Bladder CA - Hypertension Mother - Heart Father - Diabetes Father - Colon Cancer No Family History Employer And Job Title: None on file Years Of Education Completed: Not specified Marital Status: Social History Tobacco Use - Smoking status: Former Smoker Packs/day: 2.00 Types: Cigarettes Start date: 1974 Quit date: 2000 Years since quittin.3 - Smokeless tobacco: Never Used Vaping Use - Vaping Use: Never used Substance Use Topics - Alcohol use: No - Drug use: No Review of Systems: Review of Systems All other systems reviewed and are negative. Are you taking any blood thinners? No Physical Examination: BP 142/78 Pulse 58 Ht 6' 0 (1.83m) Wt 247 lb (112.0kg) BMI 33.49 kg/(m2). Physical Exam Constitutional: Appearance: Normal appearance. He is obese. HENT: Head: Normocephalic and atraumatic. Nose: Nose normal. Eyes: General: No scleral icterus. Extraocular Movements: Extraocular movements intact. Conjunctiva/sclera: Conjunctivae normal. Pupils: Pupils are equal, round, and reactive to light. Cardiovascular: Rate and Rhythm: Normal rate and regular rhythm. Pulses: Normal pulses. Heart sounds: Normal heart sounds. Pulmo (more content not included)... Normal [facility] CT CARDIAC SCORINGon 022 CT CARDIAC SCORING Patient Name: GARRET SU STUDY: CT CARDIAC SCORING; 02/07/2022 5:49 pm INDICATION: SCREENING FOR CARDIAC DISEASE. COMPARISON: None. ACCESSION NUMBER(S): [id number] ORDERING CLINICIAN: MASHA ORTIZ TECHNIQUE: Using prospective ECG gating, CT scan of the coronary arteries was performed without intravenous contrast. Coronary calcium scoring was performed according to the method of Agatston. FINDINGS: The score and distribution of calcium in the coronary arteries is as follows: LM 0 LAD 0 LCx 0 RCA 2.39 Total 2.39 The heart size is normal and there is no pericardial effusion. The chest vasculature is unremarkable.There is no significant mediastinal or hilar adenopathy. The visualized lungs are clear. The visualized upper abdominal contents are within normal limits. The bony structures are intact. IMPRESSION: Coronary artery calcium score of 2.39 Coronary artery calcium scoring may be helpful in predicting the risk for future coronary heart disease events. According to the [employer] Clinical Expert Consensus Task Force, such testing provides important prognostic information in patients with more than one coronary heart disease risk factor. The coronary artery calcium score correlates with the annual risk of a non-fatal myocardial infarction or coronary heart disease . Coronary artery score Annual Risk 0-99 0.4% 100-399 1.3% >400 2.4% These three breakpoints correspond to lower, intermediate and high risk states for future coronary events. Such information should be used, along with appropriate clinical judgment, to make decisions regarding the intensity of risk factor management strategies to treat blood lipids and to modify other non-lipid coronary risk factors. Reference: Buckley P et al. Circulation. 2007; 115:402-426 Electronically signed by: JEREMIAH ALEXANDRA MD [facility] Office Visit: UC: Diverticul itison 2017 Dietary management education, guidance, and counseling (procedure) yes Invalid Interpretation Code [facility] Work Phone: Documentation of current medications (procedure) Done Invalid Interpretation Code [facility] Work Phone: Fall risk assessment No [facility] Work Phone: Protein mass conc Done [facility] Work Phone: Tobacco smoking status NHIS Former smoker [facility] Work Phone: Tobacco use [facility] Former smoker Invalid Interpretation Code [facility] Work Phone: Office Visiton 11-20-2016 Dietary management education, guidance, and counseling (procedure) yes Invalid Interpretation Code [facility] Work Phone: Documentation of current medications (procedure) Done Invalid Interpretation Code [facility] Work Phone: Tobacco use [facility] Former smoker Invalid Interpretation Code [facility] Work Phone: Office Visiton 03-04-2015 Protein mass conc yes [facility] Work Phone: Smoking cessation education (procedure) yes Invalid Interpretation Code [facility] Work Phone: Vital Signs Date Time Vital Sign Value Performing Clinician Facility 03-27-2022 12:47-0400 Diastolic blood pressure 71 mm[Hg] Antwon Chance MD Work Phone: [facility] 03-27-2022 12:47-0400 Heart rate 67 /min Antwon Chance MD Work Phone: [facility] 03-27-2022 12:47-0400 Respiratory rate 16 /min Antwon Chance MD Work Phone: [facility] 03-27-2022 12:47-0400 SaO2% (BldA) [Mass fraction] 95 % Antwon Chance MD Work Phone: [facility] 03-27-2022 12:47-0400 Systolic blood pressure 118 mm[Hg] Antwon Chance MD Work Phone: [facility] 03-27-2022 12:32-0400 Body temperature 98.71 [degF] Antwon Chance MD Work Phone: [facility] 03-27-2022 11:07-0400 Body height 182.9 cm Antwon Chance MD Work Phone: [facility] 03-27-2022 11:07-0400 Body weight 112.04 kg Antwon Chance MD Work Phone: [facility] 02-27-2022 09:38-0400 Body height 182.9 cm Marjan Ang PA-C Work Phone: [facility] 02-27-2022 09:38-0400 Body weight 112.04 kg Marjan Ang PA-C Work Phone: [facility] 02-27-2022 09:38-0400 Diastolic blood pressure 78 mm[Hg] Marjan Ang PA-C Work Phone: [facility] 02-27-2022 09:38-0400 Heart rate 58 /min Marjan Ang PA-C Work Phone: [facility] 02-27-2022 09:38-0400 Systolic blood pressure 142 mm[Hg] Marjan Ang PA-C Work Phone: [facility] 2017 13:37-0400 BMI (Body Mass Index) 35.64 kg/m2 Charisma De La O LPN [facility] Work Phone: 2017 13:37-0400 Body Temperature 98.4 [degF] Charisma De La O LPN [facility] Work Phone: 2017 13:37-0400 BP Diastolic 84 mm[Hg] Charisma De La O LPN [facility] Work Phone: 2017 13:37-0400 BP Systolic 118 mm[Hg] Charisma De La O LPN [facility] Work Phone: 2017 13:37-0400 Height 185.42 cm Charisma De La O LPN [facility] Work Phone: 2017 13:37-0400 Pulse (Heart Rate) 60 /min Charisma De La O LPN [facility] Work Phone: 2017 13:37-0400 Respiratory Rate 12 /min Charisma De La O LPN [facility] Work Phone: 2017 13:37-0400 Weight 122.56 kg Charisma De La O LPN [facility] Work Phone: 03-04-2015 08:37-0400 BMI (Body Mass Index) 38.65 kg/m2 Charisma De La O LPN [facility] Work Phone: 03-04-2015 08:37-0400 Weight 129.28 kg Charisma De La O LPN [facility] Work Phone: 10-12-2014 14:07-0500 BP Diastolic 70 mm[Hg] Charisma De La O LPN [facility] Work Phone: 10-12-2014 14:07-0500 BP Systolic 114 mm[Hg] Charisma De La O LPN [facility] Work Phone: 10-12-2014 14:07-0500 Pulse (Heart Rate) 60 /min Charisma De La O LPN [facility] Work Phone: 11-25-2010 10:29-0500 Body Temperature 98 [degF] Charisma De La O LPN [facility] Work Phone: 11-25-2010 10:29-0500 Respiratory Rate 20 /min Charisma De La O LPN [facility] Work Phone: 11-05-2010 12:40-0500 Height 182.88 cm Charisma De La O LPN [facility] Work Phone: Encounters Encounter Date Encounter Type Care Provider Facility Start: 04-02-2022 Telephone encounter Marjan Fry PA-C Work Phone: [facility] [place] Comment on above: Results Start: 03-27-2022 End: 03-27-2022 Subsequent hospital visit by physician Antwon Chance MD Work Phone: Ambulatory Surgery Comment on above: Diverticulitis [K57. [id number]] Start: 02-27-2022 End: 02-27-2022 Patient encounter procedure Marjan GUERINC Work Phone: [facility] Comment on above: Diverticulitis (Prim farhad Dx) Procedures Date Procedure Procedure Detail Performing Clinician Start: 03-27-2022 Colonoscopy flx dx w /collj spec when pfrmd Marjan Fry PA-C Work Phone: Start: 03-27-2022 Colonoscopy Antwon oswald MD Work Phone: Start: 2017 End: 2017 Dietary management education, guidance, and counseling Charisma De La O LPN Plan of Treatment Date Care Activity Detail Author Start: 03-27-2027 Colonoscopy COLONOSCOPY [facility] Start: 03-27-2027 COLORECTAL CANCER SCREENING COLORECTAL CANCER SCREENING [facility] Start: 03-27-2023 Colonoscopy COLONOSCOPY [facility] Start: 03-27-2023 COLORECTAL CANCER SCREENING COLORECTAL CANCER SCREENING [facility] Start: 06-14-2022 Influenza vaccination INFLUENZA (Sea son Ended) [facility] Start: 07-19-2021 COVID-19 VACCINE (3 - Booster for Moderna series) COVID-19 VACCINE (3 - Booster for Moderna series) [facility] Start: 2017 End: 2017 Appointment Appointment [facility] Work Phone: Start: 09-21-2016 End: 09-21-2016 X-ray exam, knee, 4 or more X-Ray, Knee [facility] Work Phone: Start: 2016 PROSTATE CANCER SCREENING DISCUSSION PROSTATE CANCER SCREENING DISCUSSION [facility] Start: 11-26-2014 End: 11-26-2014 X-ray exam l-s spine bending X-Ray, Spine, Lumbar, complete with bending views [facility] Work Phone: Start: 10-12-2014 End: 10-18-2014 Mri jnt of lwr extre w/o dye MRI Joint Lower Extremity [facility] Work Phone: Start: 10-12-2014 End: 10-12-2014 X-ray exam of elbow X-Ray, Elbow [facility] Work Phone: Start: 2011 SHINGRIX VACCINE (1 of 2) SHINGRIX VACCINE (1 of 2) [facility] Start: 2006 COLOGUARD (FIT-DNA) COLOGUARD (FIT-D NA) [facility] Start: 2006 Colonoscopy COLONOSCOPY [facility] Start: 2006 COLORECTAL CANCER SCREENING COLORECTAL CANCER SCREENING [facility] Start: [address] COLONOGRAPHY [facility] Start: 2006 DIABETES SCREEN DIABETES SCREEN [facility] Start: 2006 FECAL OCCULT BLOOD FECAL OCCULT BLOO D [facility] Start: 2006 SIGMOIDOSCOPY SIGMOIDOSCOPY [facility] Start: 1996 LIPID SCREEN LIPID SCREEN [facility] Start: 1980 Urine microalbumin profile DTAP,TDAP,TD (1 - Tdap) [facility] Start: 1979 HEPATITIS C SCREENING HEPATITIS C SC [facility] Start: 1979 HIV SCREENING HIV SCREENING [facility] Start: 1973 Adult depression screening assessment DEPRESSION SCREENING [facility] End: 02-27-2023 COLONOSCOPY DIAGNOSTIC COLONOSCOPY DIAGNOSTIC Endoscopy Routine Diverticulitis 1 Occurrences starting 02/27/2022 until 02/27/2023 [facility] Work Phone: Comment on above: 1 Occurrences starti ng 02/27/2022 until 02/27/2023 Patient Education [facility] in Work Phone: SURGICAL PATHOLOGY [facility] Work Phone: Comment on above: Release Upon Kimberley lopez for 1 Occurrences starting 03/27/2022, 1 completed [facility] Payers Date Payer Category Payer Private Health Insurance [facility] [employer] [id number] 2015-Present [phone] [address] [address] [place] [address] HMO [id number] Social History Date Type Detail Facility Start: 07-08-2017 Tobacco smoking stat us NHIS Ex-smoker [facility] Start: 10-14-1974 End: 10-14-2000 History of tobacco use Current smoker [facility] Start: 10-14-1974 End: 10-14-2000 History of tobacco use Cigarette Smoker [facility] Start: 07-08-2017 Cigarettes smoked cu rrent (pack per day) - Reported 2 [facility] Start: 07-08-2017 Tobacco use and exposure Smoke less tobacco non-user [facility] Start: 02-27-2022 End: 04-02-2022 Alcohol intake Current non-drinker of alcohol (finding) [facility] Start: 1960 Sex Assigned At Not on file [facility] Start: 02-17-2022 End: 03-27-2022 Exposure to SARS-CoV-2 (event) Not sure [facility] Clinical Notes 02-27-2022 to 04-02-2022 Telephone Encounter - Alexia Marsh MA - 04/02/2022 10:15 AM Sunny Oh RN - 03/27/2022 12:57 PM Sunny Oh RN - 03/27/2022 12:49 PM Sunny Oh RN - 03/27/2022 12:44 PM EDT Note Date & Type Note Facility 04-02-2022 Miscellaneous Notes LVTCB for colonoscopy results documented in this encounter [facility] 03-27-2022 Note HNO ID: [id number] Author: Veronica Oh RN Service: ? Author Type: Registered Nurse Type: Nursing Progress Note Filed: 03/27/2022 12:57 PM Note Text: Pt. States readiness for discharge. Assisted with dressing. [facility] 03-27-2022 Note HNO ID: [id number] Author: Veronica Oh RN Service: ? Author Type: Registered Nurse Type: Nursing Progress Note Filed: 03/27/2022 12:44 PM Note Text: Physician at bedside. [facility] 03-27-2022 Nurse Note Pt. States readiness for discharge. Assisted with dressing. Discharge instructions given and patient voices understanding. All questions answered. Veronica Oh RN Physician at bedside. documented in this encounter [facility] 03-27-2022 Miscellaneous Notes Abdominal support applied. documented in this encounter [facility] 03-27-2022 History and physical note HISTORY AND PHYSICAL Garret Su, 61 year old male here for colonoscopy, to evaluate history of diverticulitis Current history and physical on file: Yes Is a new History and Physical required for today's visit? No Indication for procedure: Diverticulitis PROCEDURE(S) SCHEDULED FOR: Colonoscopy with or without biopsies and with or without removal of polyps or lesions, dilation (any means), treatment of bleeding (any means), based on clinical findings. BASELINE BEHAVIOR: Calm BASELINE ORIENTATION: A & O x3 All medications and allergies reviewed: Yes Skin Assessment: Warm dry muscus membranes pink Airway/Respiratory Assessment: Airway: visualization of the uvula- Yes Mouth: opening greater than 2 fingerbreadths- Yes Neck: full range of motion- Yes Breath sounds clear/equal- Yes Cardiac Assessment: Regular rate and rhythm without murmur Abdominal Assessment: Abdomen soft, non-tender, no masses or organomegaly. Sedation Plan: Deep Additional Comments: None Antwon Chance MD documented in this encounter [facility] 02-27-2022 Note HNO ID: [id number] Author: Marjan Fry PA-C Service: ? Author Type: Physician Periodicals Library Assistant Type: Progress Notes Filed: 02/27/2022 10:01 AM Note Text: CHIEF COMPLAINT: Patient presents with: Hx of Diverticulitis: Wants to discuss here before seeing a surgeon-CT in [place] This consult was requested by Self for an opinion regarding diverticulitis. My final recommendations will be communicated to the requesting health care provider by way of the shared medical record for internal providers or letter via the [employer] for external providers. HPI: Garret Su is a 61 year old male who presents for Hx of Diverticulitis (Wants to discuss here before seeing a surgeon-CT in [place] ). PMHx of anemia, diverticulitis, gastric polyps, GERD, HLD, HTN, IBS, obesity Patient had an attack of Diverticulitis in August, November and December of this year. Tells me that the December attack was the worst is has ever been. Tells me that he feeling well today. Denies change in bowel habits, blood in the stool, abdominal pain. Appetite is good. Weight is fluctuating. CT abd/pelvis 12/14/2021: FINDINGS: The visualized lung bases are unremarkable. Coronary artery calcification. There is decreased attenuation of the liver consistent with steatosis. There are surgical clips in the gallbladder fossa consistent with a prior cholecystectomy. Normal spleen. Normal pancreas. Normal bilateral adrenal glands. There is a 3.5 cm x 2.8 cm cyst in the upper lateral aspect of the left kidney. There is a 1.2 cm cyst in the upper medial aspect of the left kidney. Stable 1.6 cm cyst in the anterior midportion of the kidney as well as the posterior lower pole of the Normal visualized stomach. Normal small intestine. There is diverticulosis, with thickening of the colon wall, and pericolonic inflammation changes consistent with acute diverticulitis. The appendix is visualized and appears normal. There is diffuse atherosclerotic calcification of the abdominal aorta, without a demonstrated aneurysm. Normal inferior vena cava. Normal retroperitoneum. Normal urinary bladder. There is a left-sided inguinal hernia containing adipose tissue. There are mild degenerative changes of the visualized lumbar spine. Colonoscopy 2014: Record Review: [facility] / Outside records reviewed. PAST MEDICAL HISTORY Diagnosis Date - Anemia - Diverticulosis - Environmental allergies - Gastric polyps - GERD (gastroesophageal reflux disease) - Hyperlipidemia - Hypertension - Irritable bowel - Obesity PAST SURGICAL HISTORY Procedure Laterality Date - CHOLECYSTECTOMY - COLONOSCOPY 09/07/2015 - EGD 07/29/2012 - EGD 07/07/2018 Multiple gastric polyps, bile gastritis - TONSILLECTOMY AND ADENOIDECTOMY Allergies: ALLERGIES Allergen Reactions - Latex Rash Medications: cholecalciferol, Vitamin D3, (VITAMIN D3) 1,250 mcg (50,000 unit) cap capsule testosterone cypionate (DEPO-TESTOSTERONE) 200 mg/mL injection testosterone cypionate (DEPO-TESTOSTERONE) 100 mg/mL injection pantoprazole DR (PROTONIX) 40 mg tablet Take 1 tablet by mouth once daily. aspirin (ASPIR-81 ORAL) Take by mouth. Fenofibric Acid (TRILIPIX) 135 mg cpDR Take 135 mg by mouth once daily. cholestyramine-sucrose (QUESTRAN) 4 gram powder Take 4 g by mouth once daily. lisinopril (ZESTRIL, PRINIVIL) 40 mg tablet Take 40 mg by mouth once daily. FAMILY HISTORY Problem Relation Age of Onset - Cancer Mother Breast, Bladder CA - Hypertension Mother - Heart Father - Diabetes Father - Colon Cancer No Family History Employer And Job Title: None on file Years Of Education Completed: Not specified Marital Status: Social History Tobacco Use - Smoking status: Former Smoker Packs/day: 2.00 Types: Cigarettes Start date: 1974 Quit date: 2000 Years since quittin.3 - Smokeless tobacco: Never Used Vaping Use - Vaping Use: Never used Substance Use Topics - Alcohol use: No - Drug use: No Review of Systems: Review of Systems All other systems reviewed and are negative. Are you taking any blood thinners? No Physical Examination: BP 142/78 Pulse 58 Ht 6' 0 (1.83m) Wt 247 lb (112.0kg) BMI 33.49 kg/(m2). Physical Exam Constitutional: Appearance: Normal appearance. He is obese. HENT: Head: Normocephalic and atraumatic. Nose: Nose normal. Eyes: General: No scleral icterus. Extraocular Movements: Extraocular movements intact. Conjunctiva/sclera: Conjunctivae normal. Pupils: Pupils are equal, round, and reactive to light. Cardiovascular: Rate and Rhythm: Normal rate and regular rhythm. Pulses: Normal pulses. Heart sounds: Normal heart sounds. Pulmonary: Effort: Pulmonary effort is normal. Breath sounds: Normal breath sounds. Abdominal: General: Abdomen is flat. Bowel sounds are normal. Palpations: Abdomen is soft. Tenderness: There is no abdominal tenderness. Musculoske (more content not included)... [facility] 02-27-2022 Instructions Marjan Fry PA-C - 02/27/2022 9:54 AM EDT Images from the original note were not included. Bowel Preparation Instructions for: Miralax-Gatorade Preparations IF YOU DO NOT FOLLOW THESE DIRECTIONS, YOUR COLONOSCOPY WILL BE CANCELLED. [place] Instructions: Your bowel must be empty so that your doctor can clearly view your colon. Follow all of the instructions in this handout EXACTLY as they are written. Do NOT eat any solid food the ENTIRE day before your colonoscopy. Buy your bowel preparation at least 5 days before your colonoscopy. Four (4) Dulcolax laxative tablets containing 5mg of bisacodyl each (NOT Dulcolax stool softener) One (1) 8.3oz. bottle Miralax (238 grams) or generic equivalent 2 x 32oz. Bottles of Gatorade (NOT RED) Diabetic Patients: Use G2 (Gatorade 2) TRANSPORTATION on the Day of Your Exam A responsible adult MUST be present with you at Check In prior to your colonoscopy and REMAIN in the endoscopy area until you are discharged. You are NOT ALLOWED to drive, take a taxi or bus, or leave the Endoscopy Center ALONE. If you do not have a responsible heavy truck driver (family member or friend) with you to take you home, your exam cannot be done with sedation and will be cancelled. Please bring a list of all of your current medications, including any Oxvg-xny-Uqqxdme medications with you. Medications If you take insulin, diabetic medications or blood thinners such as Coumadin (warfarin), Plavix (clopidogrel), Ticlid (ticlopidine hydrochloride), Agrylin (anagrelide), Xarelto (Rivaroxaban), Pradaxa (Dabigatran), Eliquis (Apixaban), and Effient (Prasugrel). You MUST call the doctors who orders those medicines for instructions on altering the dosage before your colonoscopy. All other medications should be taken the day of the exam with a sip of water including ASPIRIN. Five (5) Days Before Your Colonoscopy Do NOT take medicines that stop diarrhea - such as Imodium, Kaopectate, or Pepto Bismol. Do NOT take fiber supplements - such as Metamucil, Citrucel, or Perdiem. Do NOT take products that contain iron - such as multi-vitamins (the label lists what is in the products). Three (3) Days Before Your Colonoscopy Do NOT eat high-fiber foods - such as popcorn, beans, seeds (flax, sunflower, quinoa), multigrain bread, nuts, salad/vegetables, or fresh and dried fruit. 2 Bowel Preparation Instructions for: Miralax-Gatorade Preparations One (1) Day Before Your Colonoscopy Only drink clear liquids the ENTIRE DAY before your colonoscopy. Do NOT eat any solid foods. Drink at least 8 ounces of clear liquids every hour after waking up. The clear liquids you can drink include: Clear Liquid (NO RED LIQUIDS) DO NOT DRINK Gatorade, Pedialyte or Powerade Clear broth or bouillon Coffee or tea (no milk or non-dairy creamer) Carbonated and non-carbonated soft drinks Tod-Aid or other fruit flavored drinks Strained fruit juices (no pulp) Jell-O, popsicles, hard candy Water Alcohol Milk or non-dairy creamers Noodles or vegetables in soup Juice with pulp Liquid you cannot see through Mix 1/2 of Miralax bottle (119 grams) in each 32 ounces of Gatorade bottle until dissolved. Keep cool in the refrigerator. DO NOT ADD ICE. The bowel preparation solution will be consumed in two parts. Part 1 5:00 PM - Evening before your colonoscopy Take 4 Dulcolax tablets. 6 PM - Evening before your colonoscopy Drink 32 oz. of the mixed solution. Drink an 8 oz. glass of bowel preparation every 15 minutes for a total of 4 glasses. Fifteen (15) minutes later, drink an 8 oz. glass of of clear liquids every 15 minutes for a total of 2 glasses. You may continue to drink clear liquids till midnight. Part 2 On the day of your colonoscopy you may drink clear liquids up to (three) 3 hours prior to procedure. 4 1/2 hours before your colonoscopy Take another 32 oz. bottle of mixed solution. Drink an 8 oz. glass of bowel prep every 15 minutes for a total of 4 glasses. Fifteen (15) minutes later, drink an 8 oz. glass of clear liquids every 15 minutes for a total of 2 glasses. You may continue to drink clear liquids up to (three) 3 hours before your exam. 3 09/2019 documented in this encounter [facility] 02-27-2022 History of Presen t illness Narrative Images from the original note were not included. CHIEF COMPLAINT: Patient presents with: Hx of Diverticulitis: Wants to discuss here before seeing a surgeon-CT in [place] This consult was requested by Self for an opinion regarding diverticulitis. My final recommendations will be communicated to the requesting health care provider by way of the shared medical record for internal providers or letter via the [employer] [place] for external providers. HPI: Garret Su is a 61 year old male who presents for Hx of Diverticulitis (Wants to discuss here before seeing a surgeon-CT in [place] ). PMHx of anemia, diverticulitis, gastric polyps, GERD, HLD, HTN, IBS, obesity Patient had an attack of Diverticulitis in August, November and December of this year. Tells me that the December attack was the worst is has ever been. Tells me that he feeling well today. Denies change in bowel habits, blood in the stool, abdominal pain. Appetite is good. Weight is fluctuating. CT abd/pelvis 12/14/2021: FINDINGS: The visualized lung bases are unremarkable. Coronary artery calcification. There is decreased attenuation of the liver consistent with steatosis. There are surgical clips in the gallbladder fossa consistent with a prior cholecystectomy. Normal spleen. Normal pancreas. Normal bilateral adrenal glands. There is a 3.5 cm x 2.8 cm cyst in the upper lateral aspect of the left kidney. There is a 1.2 cm cyst in the upper medial aspect of the left kidney. Stable 1.6 cm cyst in the anterior midportion of the kidney as well as the posterior lower pole of the Normal visualized stomach. Normal small intestine. There is diverticulosis, with thickening of the colon wall, and pericolonic inflammation changes consistent with acute diverticulitis. The appendix is visualized and appears normal. There is diffuse atherosclerotic calcification of the abdominal aorta, without a demonstrated aneurysm. Normal inferior vena cava. Normal retroperitoneum. Normal urinary bladder. There is a left-sided inguinal hernia containing adipose tissue. There are mild degenerative changes of the visualized lumbar spine. Colonoscopy 2014: Record Review: [facility] / Outside records reviewed. PAST MEDICAL HISTORY Diagnosis Date Anemia Diverticulosis Environmental allergies Gastric polyps GERD (gastroesophageal reflux disease) Hyperlipidemia Hypertension Irritable bowel Obesity PAST SURGICAL HISTORY Procedure Laterality Date CHOLECYSTECTOMY COLONOSCOPY 09/07/2015 EGD 07/29/2012 EGD 07/07/2018 Multiple gastric polyps, bile gastritis TONSILLECTOMY & ADENOIDECTOMY <AGE 13 Allergies: ALLERGIES Allergen Reactions Latex Rash Medications: cholecalciferol, Vitamin D3, (VITAMIN D3) 1,250 mcg (50,000 unit) cap capsule testosterone cypionate (DEPO-TESTOSTERONE) 200 mg/mL injection testosterone cypionate (DEPO-TESTOSTERONE) 100 mg/mL injection pantoprazole DR (PROTONIX) 40 mg tablet Take 1 tablet by mouth once daily. aspirin (ASPIR-81 ORAL) Take by mouth. Fenofibric Acid (TRILIPIX) 135 mg cpDR Take 135 mg by mouth once daily. cholestyramine-sucrose (QUESTRAN) 4 gram powder Take 4 g by mouth once daily. lisinopril (ZESTRIL, PRINIVIL) 40 mg tablet Take 40 mg by mouth once daily. FAMILY HISTORY Problem Relation Age of Onset Cancer Mother Breast, Bladder CA Hypertension Mother Heart Father Diabetes Father Colon Cancer No Family History Employer And Job Title: None on file Years Of Education Completed: Not specified Marital Status: Social History Tobacco Use Smoking status: Former Smoker Packs/day: 2.00 Types: Cigarettes Start date: 1974 Quit date: 2000 Years since quittin.3 Smokeless tobacco: Never Used Vaping Use Vaping Use: Never used Substance Use Topics Alcohol use: No Drug use: No Review of Systems: Review of Systems All other systems reviewed and are negative. Are you taking any blood thinners? No Physical Examination: BP 142/78 Pulse 58 Ht 6' 0 (1.83m) Wt 247 lb (112.0kg) BMI 33.49 kg/(m^2). Physical Exam Constitutional: Appearance: Normal appearance. He is obese. HENT: Head: Normocephalic and atraumatic. Nose: Nose normal. Eyes: General: No scleral icterus. Extraocular Movements: Extraocular movements intact. Conjunctiva/sclera: Conjunctivae normal. Pupils: Pupils are equal, round, and reactive to light. Cardiovascular: Rate and Rhythm: Normal rate and regular rhythm. Pulses: Normal pulses. Heart sounds: Normal heart sounds. Pulmonary: Effort: Pulmonary effort is normal. Breath sounds: Normal breath sounds. Abdominal: General: Abdomen is flat. Bowel sounds are normal. Palpations: Abdomen is soft. Tenderness: There is no abdominal tenderness. Musculoskeletal: General: Normal range of motion. Cervical back: Normal range of motion and neck supple. Skin: General: Skin is warm and dry. Coloration: Skin is not jaundiced. Neurological: General: No focal deficit present. Mental Status: He is alert and oriented to person, place, and time. Psychiatric: Mood and Affect: Mood normal. Behavior: Behavior normal. Thought Content: Thought content normal. Judgment: Judgment normal. Assessment/Plan (K57.92) Diverticulitis (primary encounter diagnosis) 1. Diverticulitis -- Patient has had three diverticulitis flares in the last year. Tells me that the flare in December was his worst yet. Overall feeling well today. -- Will need updated colonoscopy for further evaluation. Last colonoscopy was in 2014. Order placed. -- Discussed seeing Surgery in detail today, does have a surgeon who he can contact. He would like to have the colonoscopy first and proceed from there. - COLONOSCOPY DIAGNOSTIC; Future Follow up in office PRN. Recommended to please call office/go to ER if fever, chills, chest pain, SOB, diarrhea, nausea, emesis, worsening abdominal pain, dehydration occurs I spent 25 minutes in the visit, with more than 50% of the total [id number] time of the visit in counseling / coordination of care. I have confirmed and edited as necessary, the PFSH and ROS obtained by others. Marjan Fry PA-C February 27, 2022 9:55 AM documented in this encounter [facility] Evaluation note Diagnosis Diverticulitis- Primary Diverticulitis of colon (without mention of hemorrhage) [facility] Diagnosis Diverticulitis Diverticulitis of colon (without mention of hemorrhage) documented in this encounter [facility] for referral (narrative)* Outpatient Procedure (Routine) - Pending Review Specialty Diagnoses / Procedures Referred By Conor myrick Referred To Contact [facility] Diagnoses Diverticulitis Procedures COLONOSCOPY DIAGNOSTIC COLONOSCOPY FLX DX W/COLLJ SPEC WHEN Marjan Calderon PA-C [address] [place] [address] [address] Referral ID Status Reason Start Date Expiration Date Visits Requested Visits Authorized [id number] Pending Review Auto-Generat ed Referral 02/27/2022 02/27/2023 1 1 [facility] for referral (narrative)* Outpatient Procedure (Routine) - Closed Specialty Diagnoses / Procedures Referred By Conor myrick Referred To Contact [facility] Diagnoses Diverticulitis Procedures COLONOSCOPY DIAGNOSTIC COLONOSCOPY FLX DX W/COLLJ SPEC WHEN Marjan Calderon PA-C [address] [place] [address] [address] Referral ID Status Reason Start Date Expiration Date V isits Requested Visits Authorized [id number] Closed Auto-Generate d Referral 03/27/2022 04/25/2022 1 1 T [facility] for visit Narrative* Outpatient Procedure (Routine) - Closed Specialty Diagnoses / Procedures Referred By Conor myrick Referred To Contact [facility] Diagnoses Diverticulitis Procedures COLONOSCOPY DIAGNOSTIC COLONOSCOPY FLX DX W/COLLJ SPEC WHEN Marjan Calderon PA-C [address] [place] [address] [facility] [address] [address] Referral ID Status Reason Start Date Expiration Date V isits Requested Visits Authorized [id number] Closed Auto-Generate d Referral 03/27/2022 04/25/2022 1 1 [facility] Summary Purpose Family History No Family History Records FoundNo Family History Records Found Advance Directives No Advanced Directives Records FoundDocuments on File Type Date Recorded Patient Network Project Manager Expl anation Advance Directive(s) 07/07/2018 9:18 AM Documents on File Type Date Recorded Patient Network Project Manager Expl anation Advance Directive(s) 07/07/2018 9:18 AM Additional Source Comments (unrecognized sect ion and content) No Status Records FoundNo Status Records Found INFORMATION SOURCE (unrecogn ized section and content) DATE CREATED AUTHOR 02/11/2022 [facility] DATE CREATED AUTHOR AUTHOR'S ORGANIZ ATION 04/02/2022 [facility] Source Comments (unrecognize d section and content) In the event this informatio n is protected by the Federal Confidentiality of Alcohol and Drug Abuse Patient Records regulations: The Federal rules restrict any use of the information to criminally investigate or prosecute any alcohol or drug abuse patient.[facility] the event this information is protected by the Federal Confidentiality of Alcohol and Drug Abuse Patient Records regulations: The Federal rules restrict any use of the information to criminally investigate or prosecute any alcohol or drug abuse patient.[facility] the event this information is protected by the Federal Confidentiality of Alcohol and Drug Abuse Patient Records regulations: The Federal rules restrict any use of the information to criminally investigate or prosecute any alcohol or drug abuse patient.[facility] Reason for Visit (unrecogniz ed section and content) Reason Comments Hx of Diverticulitis Wants to discuss he re before seeing a surgeon-CT in [place] Reason Comments Results Care Teams (unrecognized sec tion and content) Aviation Consultant Relationship Specialty Start Date End Date AngelMasha DO [address] [place], [place] [id number] PCP - General Family Practice 07/01/17 Aviation Consultant Relationship Specialty Start Date End Date AngelMasha DO [address] [place], [place] [id number] PCP - General Family Practice 07/01/17 Aviation Consultant Relationship Specialty Start Date End Date Masha Ortiz DO Elijah [address] [place] [address] PCP - General Family Practice 07/01/17 FOR RECORDS PERTAINING TO PATIENTS WHO ARE OR HAVE BEEN ENROLLED IN A CHEMICAL DEPENDENCY/SUBSTANCEABUSE PROGRAM, SOME INFORMATION MAY BE OMITTED. This clinical summary was aggregated from multiple sources. Caution should be exercised in using it in the provision of clinical care. This summary normalizes information from multiple sources, and as a consequence, information in this document may materially change the coding, format and clinical context of patient data. In addition, data may be omitted in some cases. CLINICAL DECISIONS SHOULD BE BASED ON THE PRIMARY CLINICAL RECORDS. [employer] [facility]. provides no warranty or guarantee of the accuracy or completeness of information in this document.
[2024-08-03 15:26] LABS: Absolute Lymphocyte Count 1.41 X10^3/uL (0.83-4.51); Absolute Neutrophil Count 3.7 X10^3/uL (2.0-7.7); Basophil# 0.02 X10^3/uL; Basophil% 0.4 % (0-1); Eosinophil# 0.09 X10^3/uL; Eosinophils% 1.6 % (0-5); Hematocrit 47.9 % (40-54); Hemoglobin 15.5 g/dL (13.0-16.5); Lymphocyte # 1.41 X10^3/ul (0.83-4.51); Lymphocyte % 25.2 % (19-41); Mean Corp Hgb Conc 32.4 g/dL (32-36); Mean Corpuscular Hgb 28.1 pg (27.0-32.0); Mean Corpuscular Volume 86.9 fL (80-94); Mean Platelet Vol. 8.8 fl (6.2-12.0); Monocyte% 5.4 % (0-10); NRBC Flagged by Analyzer 0 % (0-5); Neutrophil # 3.74 X10^3/uL (2.7-7.7); Neutrophil % 66.9 % (47-70); Platelet Count 192 K/mm3 (150-450); RBC Distribution Width CV 13.4 % (11.6-14.6); Red Blood Count 5.51 M/mm3 (4.6-6.2); White Blood Count 5.6 K/mm3 (4.4-11.0)
[2024-08-03 15:53] LABS: CRP 7.34 mg/L (0.0-3.0)
[2024-08-12 13:08] LABS: Testosterone, % Free 2.89 % (1.50-4.20); Testosterone, Free 8.27 ng/dL (5.00-21.00); Testosterone, Total 286 ng/dL (264-916)
== END | disposition home or self-care (01) ==
LOC: BFHLAB 13:20
PROVIDERS: PCP Family Medicine; Referring Provider Family Medicine; Visit Provider Family Medicine
DX: E29.1 Testicular hypofunction (principal)
CPT/HCPCS: 36415; 84402; 84403; 84443; 85025; 86140

== ENCOUNTER → 2024-10-02 | Outpatient (CLI) | payer OTHER, SELFPAY ==
[2024-10-02 15:11] LABS: Absolute Lymphocyte Count 1.62 X10^3/uL (0.83-4.51); Absolute Neutrophil Count 6.3 X10^3/uL (2.0-7.7); Basophil# 0.04 X10^3/uL; Basophil% 0.5 % (0-1); Eosinophil# 0.04 X10^3/uL; Eosinophils% 0.5 % (0-5); Hemoglobin 16.8 g/dL (13.0-16.5); Lymphocyte # 1.62 X10^3/ul (0.83-4.51); Mean Corp Hgb Conc 32.3 g/dL (32-36); Mean Corpuscular Hgb 28.6 pg (27.0-32.0); Mean Corpuscular Volume 88.6 fL (80-94); Mean Platelet Vol. 8.5 fl (6.2-12.0); Monocyte# 0.53 X10^3/uL; Monocyte% 6.2 % (0-10); NRBC Flagged by Analyzer 0 % (0-5); Neutrophil # 6.25 X10^3/uL (2.7-7.7); Neutrophil % 73.1 % (47-70); Platelet Count 219 K/mm3 (150-450); RBC Distribution Width CV 13.1 % (11.6-14.6); RBC Distribution Width SD 42.5 fl (35.1-43.9); Red Blood Count 5.87 M/mm3 (4.6-6.2); White Blood Count 8.5 K/mm3 (4.4-11.0)
[2024-10-02 16:20] LABS: ALB/GLOB Ratio 1.1 RATIO (0.9-2.4); AST(SGOT) 19 U/L (15-37); Alanine Aminotransfer ALT/SGPT 29 U/L (16-61); Albumin, Serum 3.9 g/dL (3.2-5.0); Alkaline Phosphatase 51 U/L (45-117); Anion Gap 7 (5-15); BUN 19 mg/dL (7-18); BUN/Creat Ratio 14.4 RATIO (10-20); CRP 5.48 mg/L (0.0-3.0); Calcium,Total 9.2 mg/dL (8.5-10.1); Chloride 103 mmol/L (98-107); Creatinine, Serum 1.32 mg/dL (0.70-1.30); EST Glomerular Filtration Rate 58 mL/min (>60); Est Glom Filt Rate - Afr Amer 70 mL/min (>60); Globulin 3.6 g/dL (2.2-4.2); Glucose 94 mg/dL (74-106); Protein, Total 7.5 g/dL (6.4-8.2); Sodium Level 137 mmol/L (136-145)
[2024-10-09 09:07] LABS: Testosterone, % Free 2.29 % (1.50-4.20); Testosterone, Free 4.19 ng/dL (5.00-21.00); Testosterone, Total 183 ng/dL (264-916)
== END | disposition home or self-care (01) ==
LOC: BFHLAB 13:27
PROVIDERS: PCP Family Medicine; Visit Provider Family Medicine
DX: E29.1 Testicular hypofunction (principal); D75.1 Secondary polycythemia; E03.9 Hypothyroidism, unspecified; Z51.81 Encounter for therapeutic drug level monitoring
CPT/HCPCS: 36415; 80053; 84402; 84403; 84443; 85025; 86140

== ENCOUNTER → 2024-10-12 | Outpatient (CLI) | payer OTHER, SELFPAY ==
--- NOTE | 2024-10-12 10:50 | RAD_ITS ---
STUDY: X-RAY - LEFT KNEE REASON FOR EXAM: Male, 64 years old. PAIN TECHNIQUE: 4 view(s) of the knee. COMPARISON: 05/12/2019 FINDINGS: Normal visualized distal femur. Normal visualized proximal tibia and fibula. Normal proximal tibiofibular articulation. There is mild degenerative arthrosis of the medial femorotibial compartment. There is mild degenerative arthrosis of the lateral femorotibial compartment. There is mild degenerative arthrosis of the patellofemoral articulation. The soft tissue structures are unremarkable. RAD/Knee 4 or More Views IMPRESSION: Degenerative arthrosis. Electronically Signed: Eulogio Zaragoza MD at 10:54 EST ,
== END | disposition home or self-care (01) ==
PROVIDERS: PCP Family Medicine; Referring Provider Family Medicine; Visit Provider Family Medicine
DX: M25.562 Pain in left knee (principal)
CPT/HCPCS: 73564

== ENCOUNTER → 2024-12-14 | Outpatient (CLI) | payer OTHER, SELFPAY ==
[2024-12-14 15:35] LABS: Absolute Lymphocyte Count 1.72 X10^3/uL (0.83-4.51); Basophil# 0.07 X10^3/uL; Basophil% 0.8 % (0-1); Eosinophils% 1.1 % (0-5); Hematocrit 52.6 % (40-54); Lymphocyte # 1.72 X10^3/ul (0.83-4.51); Lymphocyte % 19.5 % (19-41); Mean Corp Hgb Conc 32.3 g/dL (32-36); Mean Corpuscular Hgb 28.4 pg (27.0-32.0); Mean Platelet Vol. 8.5 fl (6.2-12.0); Monocyte# 0.82 X10^3/uL; Monocyte% 9.3 % (0-10); NRBC Flagged by Analyzer 0 % (0-5); Neutrophil # 6.01 X10^3/uL (2.7-7.7); Neutrophil % 68.4 % (47-70); Platelet Count 202 K/mm3 (150-450); RBC Distribution Width CV 13.4 % (11.6-14.6); RBC Distribution Width SD 43.3 fl (35.1-43.9); Red Blood Count 5.98 M/mm3 (4.6-6.2); White Blood Count 8.8 K/mm3 (4.4-11.0)
[2024-12-14 21:42] LABS: EST Glomerular Filtration Rate 62 (>60)
[2024-12-14 21:56] LABS: Vitamin B12 178 pg/mL (180-914); Vitamin D,25 Hydroxy 72.5 ng/mL (30-100)
[2024-12-14 23:52] LABS: ALB/GLOB Ratio 1.4 RATIO (0.9-2.4); AST(SGOT) 21 U/L (<=37); Alanine Aminotransfer ALT/SGPT 15 U/L (<=46); Albumin, Serum 4.1 g/dL (3.4-4.8); Alkaline Phosphatase 43 U/L (40-129); Anion Gap 11 (5-15); BUN 21 mg/dL (4-19); BUN/Creat Ratio 16.4 RATIO (10-20); Calcium 9.3 mg/dL (7.6-11.0); Carbon Dioxide 25.1 mmol/L (22.0-29.0); Chloride 100 mmol/L (96-108); Creatinine, Serum 1.26 mg/dL (0.70-1.20); Globulin 2.8 g/dL (2.2-4.2); Glucose 71 mg/dL (70-99); Potassium 4.3 mmol/L (3.3-5.1); Protein, Total 6.9 g/dL (5.9-8.4); Sodium Level 137 mmol/L (133-145); Total Bilirubin 0.37 mg/dL (0.00-1.30)
[2024-12-21 04:07] LABS: Testosterone Free 9.1 pg/mL (6.6-18.1)
== END | disposition home or self-care (01) ==
LOC: BFHLAB 11:06
PROVIDERS: PCP Family Medicine; Referring Provider Family Medicine; Visit Provider Family Medicine
DX: E29.1 Testicular hypofunction (principal); D75.1 Secondary polycythemia; E03.9 Hypothyroidism, unspecified; E55.9 Vitamin D deficiency, unspecified; Z51.81 Encounter for therapeutic drug level monitoring; E53.8 Deficiency of other specified B group vitamins
CPT/HCPCS: 36415; 80053; 82306; 82607; 84402; 84403; 84443; 85025; 86140

== ENCOUNTER → 2025-03-25 | Outpatient (CLI) | payer OTHER, SELFPAY ==
[2025-03-25 10:49] LABS: Erythrocyte Sedimentation Rate 4 mm/hr (0-20)
[2025-03-25 10:51] LABS: Absolute Neutrophil Count 4.3 X10^3/uL (2.0-7.7); Basophil# 0.02 X10^3/uL; Basophil% 0.3 % (0-1); Eosinophil# 0.05 X10^3/uL; Eosinophils% 0.8 % (0-5); Hematocrit 54.1 % (40-54); Hemoglobin 17.6 g/dL (13.0-16.5); Lymphocyte % 20.8 % (19-41); Mean Corp Hgb Conc 32.5 g/dL (32-36); Mean Corpuscular Hgb 27.4 pg (27.0-32.0); Mean Corpuscular Volume 84.3 fL (80-94); Mean Platelet Vol. 8.6 fl (6.2-12.0); Monocyte# 0.52 X10^3/uL; Monocyte% 8.3 % (0-10); NRBC Flagged by Analyzer 0 % (0-5); Neutrophil # 4.34 X10^3/uL (2.7-7.7); Neutrophil % 69.3 % (47-70); Platelet Count 203 K/mm3 (150-450); RBC Distribution Width CV 13.6 % (11.6-14.6); RBC Distribution Width SD 41.9 fl (35.1-43.9); Red Blood Count 6.42 M/mm3 (4.6-6.2); White Blood Count 6.3 K/mm3 (4.4-11.0)
[2025-03-25 11:32] LABS: ALB/GLOB Ratio 1.5 RATIO (0.9-2.4); AST(SGOT) 18 U/L (<=37); Alanine Aminotransfer ALT/SGPT 14 U/L (<=46); Albumin, Serum 4.2 g/dL (3.4-4.8); Alkaline Phosphatase 52 U/L (40-129); Anion Gap 11 (5-15); BUN 18 mg/dL (4-19); BUN/Creat Ratio 13.9 RATIO (10-20); Calcium,Total 9.4 mg/dL (7.6-11.0); Chloride 103 mmol/L (98-108); Cholesterol 136 mg/dL (<=200); Creatinine, Serum 1.27 mg/dL (0.70-1.20); EST Glomerular Filtration Rate 63 (>60); Globulin 2.9 g/dL (2.2-4.2); Glucose 91 mg/dL (70-99); High Density Lipoprotein 38 mg/dL; Low Density Lipoprotein Calc. 84 mg/dL; PSA,Total - Annual Screen 0.45 ng/mL (0.02-4.00); Potassium 4.5 mmol/L (3.3-5.1); Protein, Total 7.1 g/dL (5.9-8.4); Sodium Level 138 mmol/L (133-145); Total Bilirubin 0.55 mg/dL (0.00-1.30); Triglycerides 69 mg/dL; Very Low Density Lipoprotein 14 mg/dL (5-40); Vitamin B12 366 pg/mL (180-914); Vitamin D,25 Hydroxy 85.2 ng/mL (30-100)
[2025-03-25 11:51] LABS: CRP 7.95 mg/L (0.0-3.0); LDH 112 U/L (87-241)
[2025-03-30 13:08] LABS: Testosterone, % Free 2.53 % (1.50-4.20); Testosterone, Total 1012 ng/dL (264-916)
== END | disposition home or self-care (01) ==
LOC: BFHLAB 08:31
PROVIDERS: Internal Medicine Medical Oncology; PCP Family Medicine; Visit Provider Family Medicine
DX: Z12.5 Encounter for screening for malignant neoplasm of prostate (principal); E29.1 Testicular hypofunction; D75.1 Secondary polycythemia; E03.9 Hypothyroidism, unspecified; E55.9 Vitamin D deficiency, unspecified; E53.8 Deficiency of other specified B group vitamins; E78.5 Hyperlipidemia, unspecified; Z51.81 Encounter for therapeutic drug level monitoring
CPT/HCPCS: 36415; 80053; 80061; 82306; 82607; 83615; 84153; 84402; 84403; 84443; 85025; 85652; 86140; G0103

== ENCOUNTER → 2025-06-23 | Outpatient (CLI) | payer OTHER, SELFPAY ==
[2025-06-23 17:50] LABS: Hematocrit 50.9 % (40-54); Hemoglobin 16.7 g/dL (13.0-16.5); Immature Granulocytes Count 0.020 X10^3/uL (0.0-0.0); Mean Corp Hgb Conc 32.8 g/dL (32-36); Mean Corpuscular Volume 83.9 fL (80-94); Mean Platelet Vol. 9.0 fl (6.2-12.0); NRBC Flagged by Analyzer 0 % (0-5); Platelet Count 203 K/mm3 (150-450); RBC Distribution Width CV 14.0 % (11.6-14.6); RBC Distribution Width SD 42.7 fl (35.1-43.9); Red Blood Count 6.07 M/mm3 (4.6-6.2); White Blood Count 7.5 K/mm3 (4.4-11.0)
[2025-06-23 18:44] LABS: AST(SGOT) 22 U/L (<=37); Alanine Aminotransfer ALT/SGPT 20 U/L (<=46); Albumin, Serum 4.1 g/dL (3.4-4.8); Alkaline Phosphatase 45 U/L (40-129); Anion Gap 14 (5-15); BUN 20 mg/dL (4-19); BUN/Creat Ratio 15.1 RATIO (10-20); CRP 9.70 mg/L (0.0-3.0); Calcium,Total 9.3 mg/dL (7.6-11.0); Carbon Dioxide 20.8 mmol/L (21.0-32.0); Chloride 102 mmol/L (98-108); Globulin 2.8 g/dL (2.2-4.2); Glucose 108 mg/dL (70-99); Potassium 4.6 mmol/L (3.3-5.1)
[2025-06-23 18:49] LABS: Vitamin B12 470 pg/mL (180-914); Vitamin D,25 Hydroxy 89.7 ng/mL (30-100)
[2025-06-29 12:08] LABS: Testosterone, % Free 3.09 % (1.50-4.20); Testosterone, Free 29.20 ng/dL (5.00-21.00)
== END | disposition home or self-care (01) ==
LOC: BFHLAB 13:48
PROVIDERS: PCP Family Medicine; Visit Provider Family Medicine
DX: E29.1 Testicular hypofunction (principal); D75.1 Secondary polycythemia; E03.9 Hypothyroidism, unspecified; Z51.81 Encounter for therapeutic drug level monitoring; E55.9 Vitamin D deficiency, unspecified; E53.8 Deficiency of other specified B group vitamins
CPT/HCPCS: 36415; 80053; 82306; 82607; 84402; 84403; 84443; 85025; 86140